=== PATIENT | male | born 1945 | race African-American/Black ===

== ENCOUNTER 2019-07-20 10:08 | Emergency (ER) | payer OTHER ==
[2019-07-20] MEDS ORDERED: LIDOCAINE 1% W/EPI 1:100,000 MDV 20 ML VIAL ONE (10:34)
--- OUTSIDE RECORDS SUMMARY | 2019-07-20 11:41 | XMS REPORT ---
:1945 Author Organization eClinicalWorks Care Team Providers Name Role Phone Hanson, Na Provider Role Unavailable Allergies, Adverse Reactions, Alerts Substance Reaction Event Type N.K.D.A. 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 Ac tive Assessment Anemia D64.9 Active Assessment Hyperlipidemia E78.5 Active Assessment Type 2 diabetes mellitus with E11.22 Active diabetic chronic kidney disease Assessment Hypertension I10 Active Assessment Controlled type 2 diabetes mellitus E11.9 Active without complication, without long-term current use of insulin Problem Decreased testosterone level E29.1 Active Problem Posttraumatic stress disorder F43.10 Active Problem BPH without urinary obstruction N40.0 Active Problem Allergic rhinitis, seasonal J30.2 Active Problem Erectile dysfunction N52.9 Active Problem Controlled type 2 diabetes mellitus E11.9 Active without complication, without long-term current use of insulin Problem Chronic renal disease N18.9 Active Problem Diabetic retinopathy E11.319 Active Problem Obstructive sleep apnea G47.33 Acti ve Problem Type 2 diabetes mellitus with E11.22 Active diabetic chronic kidney disease Problem Diabetic polyneuropathy associated E11.42 Active with type 2 diabetes mellitus Problem Edema R60.9 Active Problem Gout M10.9 Active Problem Chronic kidney disease, stage III N18.3 Active (moderate) Problem Nonalcoholic fatty liver disease K76.0 Active Problem Thrombocytopenia D69.6 Active Problem CKD (chronic kidney disease) stage N18.3 Active 3, GFR 30-59 ml/min Problem 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 Ac tive Problem Temporary low platelet count D69.6 Active Assessment CKD (chronic kidney disease) stage N18.3 Active 3, GFR 30-59 ml/min Problem Vitamin B12 deficiency E53.8 Activ e Assessment Drug-induced constipation K59.03 Ac tive Problem Obesity E66.9 Active Assessment Diabetic polyneuropathy associated E11.42 Active with type 2 diabetes mellitus Problem Anemia D64.9 Active Assessment Proteinuria, unspecified type R80.9 Active Problem GERD (gastroesophageal reflux K21.9 Active disease) Problem Hyperlipidemia E78.5 Active Problem Sickle cell trait D57.3 Active Problem Diabetes E11.9 Active Problem Hypertension I10 Active Medications Medication Code Code Instructions Start End Status Dosage System Date Date Finasteride [facility] 12033300150 5 MG Orally Active 1 ta blet twice a day Flonase [facility] 83667946341 50 MCG/ACT Active 2 spray i n Nasally Once a each day nostril HydrALAZINE HCl [facility] 93731286564 50 MG Orally Active 1 tablet Three times a with food day Cymbalta [facility] 40173965035 60 MG Orally Active 1 caps ule Once a day Aspir-Low ND 04770836242 81 MG Orally Active 1 tab let Once a day NovoLog ND 73615423972 100 UNIT/ML Active not defi isaura Subcutaneous Judi Allergy [facility] 97864520613 180 MG Orally Active 1 tablet as Once a day needed Methocarbamol [facility] 17412601421 750 MG Orally Active 1 tablet every 12 hrs Cozaar [facility] 83081204815 100 MG Orally Active 1 tabl et Once a day Allopurinol ND 13704055346 300 MG Orally Active as directed Lyrica ND 86194432515 50 MG Orally Active 1 capsu le Once a day TID Coreg ND 61821127806 25 MG Orally Active as dire cted Levemir FlexTouch [facility] 21213796384 Sub Q Once Active as directed Daily Insulin Aspart [facility] [address]-69 100 UNIT/ML Active as directed Subcutaneous Lipitor [facility] 95346100625 40 MG Orally Active 1 table t Once a day Lasix [facility] 45732300822 20 MG Orally Active 1 table t Once a day Neurontin [facility] 69143766496 300 MG Orally Active 1 ca psule Three times a before day bedtime Wellbutrin XL ND 99526378217 150 MG Orally Active 1 tablet in twice a day the morning Levemir FlexTouch [facility] 31169747248 100 UNIT/ML Active as directed Subcutaneous Trulicity [facility] 72157982779 0.75mg/0.5ml Active one SQ once a week injection Cyanocobalamin [facility] [address]-38 1000 MCG Active 1 tablet Orally Once a day Metoprolol [facility] 05320603295 50 MG Orally Active 1 ta blet Tartrate Twice a day with food Terazosin HCl [facility] 00939891577 10 MG Orally Active 1 capsule Once a day Clonazepam [facility] 69669297537 0.5 MG Orally Active 1 t ablet at Once a day bedtime Nitrostat [facility] 05797940356 0.4 MG Active not define d Sublingual Spironolactone [facility] 01858000829 25 MG Orally Active 1 tablet twice a day with food Viagra [facility] 34981959643 100 MG Orally Active 1 tabl et as Once a day needed Prazosin HCl [facility] 74837997252 5 MG Orally Active 1 c apsule Once a day at bedtime Viteyes AREDS [facility] 70886764399 - Orally Active as di rected Advanced Prilosec [facility] 52528026419 20 MG Orally Active 1 caps ule Once a day Isosorbide [facility] 68538577599 60 MG Orally Active 1 ta blet in Mononitrate Once a day the morni ng Fexofenadine HCl [facility] 13798669876 180 MG Orally Activ e 1 tablet as Once a day needed Results No Known Results Summary Purpose eClinicalWorks Submission
--- OUTSIDE RECORDS SUMMARY | 2019-07-20 11:41 | XMS REPORT ---
:1945 Author Organization eClinicalWorks Care Team Providers Name Role Phone Hanson, Na Provider Role Unavailable Allergies No Known Allergies Problems Problem Type Condition Code Onset Dates Condition Statu s Problem Decreased testosterone level E29.1 Active Problem [...] Problem Temporary low platelet count D69.6 Active Problem Vitamin B12 deficiency E53.8 Activ e Problem Obesity E66.9 Active Problem Anemia D64.9 Active Problem GERD (gastroesophageal reflux K21.9 Active disease) Problem Hyperlipidemia E78.5 Active Problem Sickle cell trait D57.3 Active Problem Diabetes E11.9 Active Problem Hypertension I10 Active Medications No Known Medications Results No Known Results Summary Purpose eClinicalWorks Submission
--- OUTSIDE RECORDS SUMMARY | 2019-07-20 11:41 | XMS REPORT ---
:1945 Author Organization [facility] Address [facility] [place] [address] Care Team Providers Name Role Phone Unavailable Unavailable Unavailable Problems Condition Condition Condition Status Onset Resolution Last Treating Co mments Source Name Details Category Date Date Treatment Clinician Date CKD CKD Problem Active [facility] (chronic [facility] kidney kidney [facility] disease) disease) l stage 3, stage 3, Outpat i GFR 30-59 GFR 30-59 ent ml/min ml/min Clinics Anemia Anemia Problem [facility] Erectile Erectile Problem Active [facility] dysfunctio dysfunctio [facility] - n n [facility] Obstructiv Obstructiv Problem Active [facility] sleep e sleep [facility] apnea apnea [facility] Hyperlipid Hyperlipid Problem Active [facility] emia emia [facility] Diabetic Diabetic Problem Active [facility] retinopath retinopath [facility] - y y [facility] Hypertensi Hypertensi Problem Active [facility] on on [facility] Edema Edema Problem Active [facility] Gout Gout Problem Active [facility] Diabetes Diabetes Problem [facility] BPH BPH Problem Active [facility] without without [facility] urinary urinary [facility] obstructio obstructio l n n [facility] Gastroesop Gastroesop Problem Active [facility] hageal hageal [facility] - reflux reflux Memoria disease, disease, l esophagiti esophagiti Ou tpati s presence s presence en t not not Clinics specified specified Obesity Obesity Problem Active [facility] Vitamin Vitamin Problem Active [facility] B12 B12 [facility] - deficiency deficiency Me moria l [facility] Posttrauma Posttrauma Problem Active [facility] tic stress tic stress [facility] - disorder disorder [facility] Decreased Decreased Problem Active [facility] testostero testostero [facility] - ne level ne level [facility] a l [facility] Nonalcohol Nonalcohol Problem Active [facility] ic fatty ic fatty [facility] liver liver [facility] disease disease l [facility] Chronic Chronic Problem Active [facility] renal renal [facility] disease disease [facility] Sickle Sickle Problem Active [facility] cell trait cell trait [facility] - [facility] Allergic Allergic Problem Active [facility] rhinitis, rhinitis, [facility] - seasonal seasonal Memori a l [facility] Thrombocyt Thrombocyt Problem Active [facility] openia openia [facility] Type 2 Type [address] [facility] diabetes diabetes [facility] - mellitus mellitus Memori a with with l diabetic diabetic Outpat i chronic chronic ent kidney kidney Clinics disease disease Moderate Moderate Diagnosis Active [facility] major major [facility] depression depression Me moria l [facility] Diabetic Diabetic Problem Active [facility] polyneurop polyneurop [facility] associated l with type with type Outp ati 2 diabetes 2 diabetes en t mellitus mellitus Clinic s Proteinuri Proteinuri Diagnosis Active [facility] a, a, [facility] - unspecifie unspecifie Me moria d type d type l [facility] Allergies, Adverse Reactions, Alerts This patient has no known allergies or adverse reactions. Medications Ordered Filled Start Stop Current Ordering Indication Dosage Frequency Signature Comments Components Source Medication Medication Date Date Medication? Clinician (SIG) Name Name Haven Orourke Yes Na Hanson [address] [facility] as needed [facility] Fexofenadin Fexofenadin Yes Na Hanson [address] [facility] e HCl e HCl as needed [facility] Allopurinol Allopurinol Yes Na Hanson as [facility] directed [facility] NovoLog NovoLog Yes Na Hanson [address] Flexpen Flexpen [facility] Finasteride Finasteride Yes Na Hanson [address] [facility] Neurontin Neurontin Yes Na Hanson [address] [facility] before [facility] - bedtime [facility] Out[facility] Clinics Metoprolol Metoprolol Yes Na Hanson [address] [facility] [facility] Tartrate Tartrate with food [facility] - [facility] Outpat[facility] ent Clinics HydrALAZINE HydrALAZINE Yes Na Hanson [address] [facility] HCl HCl [facility] Nitrostat Nitrostat Yes Na Hanson not [facility] defined kes - [facility] Methocarbam Methocarbam Yes Na Hanson [address] [facility] ol ol kes - [facility] Viteyes Viteyes Yes Na Hanson as [facility] AREDS AREDS directed [facility] Advanced Advanced [facility] Lipitor Lipitor Yes Na Hanson [address] [facility] Prazosin Prazosin Yes Na Hanson [address] [facility] HCl HCl at bedtime [facility] Out[facility] Clinics Cozaar Cozaar Yes Na Hanson [address] [facility] Clonazepam Clonazepam Yes Na Hanson [address] [facility] Prilosec Prilosec Yes Na Hanson [address] [facility] kes - [facility] Isosorbide Isosorbide Yes Na Hanson [address] [facility] Mononitrate Mononitrate in the [facility] - morning [facility]ics Chlorthalid Chlorthalid Yes Na Hanson [address] [facility] one one in the [facility] with food l Outpati ent Clinics Levemir Levemir Yes Na Hanson as [facility] FlexTouch FlexTouch directed L [facility] - [facility]oria l Outpati ent Clinics Flonase Flonase Yes Na Hanson [address] [facility] each [facility] - nostril [facility] Out[facility] ent Clinics Cymbalta Cymbalta Yes Na Hanson [address] [facility] Cyanocobala Cyanocobala Yes Na Hanson [address] [facility] min min [facility]ics Coreg Coreg Yes Na Hanson as [facility] directed [facility] Wellbutrin Wellbutrin Yes Na Hanson [address] [facility] XL XL in the [facility] - morning Memoria l Outpati ent Clinics Aspir-Low Aspir-Low Yes Na Hanson [address] [facility] Clin[facility] Insulin Insulin Yes Na Hanson as [facility] Aspart Aspart directed [facility] Judiyara Lau Yes Na Hanson [address] Allergy Allergy as needed [place] [facility] Lyricsabrina Lyricsabrina Yes Na Hanson [address] [facility] TID [facility] NovoLog NovoLog Yes Na Hanson not [facility] defined [facility] Terazosin Terazosin Yes Na Hanson [address] [facility] [facility] HCl HCl [facility] Procedures This patient has no known procedures. Encounters Start End Encounter Admission Attending Care Care Encounter Source Date/Time Date/Time Type Type Clinicians Facility Department ID 2019-06-12 2019-06-12 [facility] [id number] [facility] 15:46:00 15:46:00 [place] [facility] Medicine Outpati ent Clinics 2019-06-01 2019-06-01 [facility] [id number] [facility] 08:40:00 08:40:00 [place] [employer] [facility] Medicine Outpati ent Clinics 2019-05-13 2019-05-13 [facility] [id number] 16:56:00 16:56:00 [place] [employer] [facility] Medicine Outpati ent Clinics 2019-02-19 2019-02-19 [facility] [id number] 09:00:00 09:00:00 [place] [employer] [facility] Medicine Outpati ent Clinics 2019-01-20 2019-01-20 [facility] [id number] 08:00:00 08:00:00 [place] [employer] [facility] Medicine Outpati ent Clinics 2018-10-30 2018-10-30 [facility] [id number] 12:20:00 12:20:00 [place] [employer] [facility] Medicine Outpati ent Clinics 2018-10-15 2018-10-15 [facility] [id number] [facility] 08:40:00 08:40:00 t [place] [employer] [facility] Medicine Outpati ent Clinics 2018-09-11 2018-09-11 [facility] [id number] 08:20:00 08:20:00 t [place] [employer] [facility] Medicine Outpati ent Clinics 2018-06-11 2018-06-11 [facility] [id number] 08:00:00 08:00:00 t [place] [employer] [facility] Medicine Outpati ent Clinics 2018-03-12 2018-03-12 [facility] [id number] 08:00:00 08:00:00 t [place] [employer] [facility] Medicine Outpati ent Clinics 2017-11-27 2017-11-27 [facility] [id number] [facility] 08:15:00 08:15:00 t [employer] [facility] Medicine Outpati ent Clinics 2017-08-27 2017-08-27 [facility] [id number] [facility] 08:30:00 08:30:00 t [employer] [facility] Medicine Outpati ent Clinics Results This patient has no known results.
--- OUTSIDE RECORDS SUMMARY | 2019-07-20 11:42 | XMS REPORT ---
:1945 Author Organization eClinicalWorks Care Team Providers Name Role Phone Hanson, Na Provider Role Unavailable Allergies No Known Allergies Problems Problem Type Condition Code Onset Dates Condition Statu s Assessment Hypertension I10 Active Assessment Hyperlipidemia E78.5 Active Assessment Erectile dysfunction, unspecified N52.9 Active erectile dysfunction type Assessment Controlled type 2 diabetes mellitus E11.9 Active without complication, without long-term current use of insulin Problem Gout M10.9 Active Problem Edema R60.9 Active Problem Anemia D64.9 Active Problem GERD (gastroesophageal reflux K21.9 Active disease) Problem Vitamin B12 deficiency E53.8 Activ e Problem BPH without urinary obstruction N40.0 Active Problem Controlled type 2 diabetes mellitus E11.9 Active without complication, without long-term current use of insulin Problem Obesity E66.9 Active Problem Nonalcoholic fatty liver disease K76.0 Active Problem Temporary low platelet count D69.6 Active Problem Decreased testosterone level E29.1 Active Problem Gastroesophageal reflux disease, K21.9 Active esophagitis presence not specified Problem Diabetic polyneuropathy associated E11.42 Active with type 2 diabetes mellitus Problem Hyperlipidemia E78.5 Active Problem Hypertension I10 Active Problem Erectile dysfunction, unspecified N52.9 Active erectile dysfunction type Problem Diabetes E11.9 Active Problem Chronic kidney disease, stage III N18.3 Active (moderate) Problem Thrombocytopenia D69.6 Active Problem Type 2 diabetes mellitus with E11.22 Active diabetic chronic kidney disease Problem 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 Ac tive Assessment 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 Ac tive Problem Erectile dysfunction N52.9 Active Assessment Type 2 diabetes mellitus with E11.22 Active diabetic chronic kidney disease Problem Chronic renal disease N18.9 Active Assessment Proteinuria, unspecified type R80.9 Active Problem Sickle cell trait D57.3 Active Assessment CKD (chronic kidney disease) stage N18.3 Active 3, GFR 30-59 ml/min Problem Allergic rhinitis, seasonal J30.2 Active Problem CKD (chronic kidney disease) stage N18.3 Active 3, GFR 30-59 ml/min Problem Posttraumatic stress disorder F43.10 Active Problem Obstructive sleep apnea G47.33 Acti ve Problem Diabetic retinopathy E11.319 Active Medications Medication Code Code Instructions Start End Status Dosage System Date Date Fexofenadine HCl [facility] 90749443378 180 MG Orally Activ e 1 tablet Once a day as needed Allopurinol ND 02255081635 300 MG Orally Active as directed NovoLog Flexpen ND 68604072876 100 UNIT/ML Active 10 units Subcutaneous before breakfast and dinner Finasteride ND 23974479047 5 MG Orally Active 1 ta blet twice a day Neurontin ND 76266207550 300 MG Orally Active 1 ca psule Three times a before day bedtime Metoprolol [facility] 87848002065 50 MG Orally Active 1 ta blet Tartrate Twice a day with food HydrALAZINE HCl ND 36906779882 50 MG Orally Active 1 tablet two times a day Nitrostat [facility] 94356394612 0.4 MG Active not Sublingual defined Methocarbamol ND 35088799100 750 MG Orally Active 1 tablet every 12 hrs Viteyes AREDS [facility] 84425124947 - Orally Active as Advanced directed Lipitor ND 98390012760 40 MG Orally Active 1 table t Once a day Viagra [facility] 76781259855 100 MG Orally Active 1 tabl et Once a day as needed Prazosin HCl ND 70530808814 5 MG Orally Active 1 c apsule Once a day at bedtime Cozaar [facility] 64114429955 100 MG Orally Active 1 tabl et Once a day Clonazepam [facility] 55698790797 0.5 MG Orally Active 1 t ablet Once a day at bedtime Prilosec [facility] 30299216725 20 MG Orally Active 1 caps ule Once a day Isosorbide ND 81618292800 60 MG Orally Active 1 ta blet Mononitrate Once a day in the morning Chlorthalidone ND 88311316058 25 MG Orally Active 1 tablet Once a day in the morning with food Levemir FlexTouch [facility] 79087438404 100 UNIT/ML Active as Subcutaneous directed Flonase [facility] 14177025051 50 MCG/ACT Active 2 spray i n Nasally Once a each day nostril Cymbalta [facility] 43373933802 60 MG Orally Active 1 caps ule Once a day Cyanocobalamin [facility] [address]-13 1000 MCG Orally Act srinivas 1 tablet Once a day Coreg [facility] 43266843487 25 MG Orally Active as directed Wellbutrin XL [facility] 46964599928 150 MG Orally Active 1 tablet twice a day in the morning Aspir-Low [facility] 59712252660 81 MG Orally Active 1 tab let Once a day Insulin Aspart [facility] [address]-90 100 UNIT/ML Active as Subcutaneous directed Judi Allergy [facility] 09489625023 180 MG Orally Active 1 tablet Once a day as needed Lyrica [facility] 89619947663 50 MG Orally Active 1 capsu le Once a day TID NovoLog [facility] 27913453799 100 UNIT/ML Active not Subcutaneous defined Terazosin HCl [facility] 67834373985 10 MG Orally Active 1 capsule Once a day Results No Known Results Summary Purpose eClinicalWorks Submission
--- OUTSIDE RECORDS SUMMARY | 2019-07-20 11:42 | XMS REPORT ---
:1945 Author Organization eClinicalWorks Care Team Providers Name Role Phone Hanson, Na Provider Role Unavailable Allergies No Known Allergies Problems Problem Type Condition Code Onset Dates Condition Statu s Assessment Erectile dysfunction, unspecified N52.9 Active erectile dysfunction type Problem Gout M10.9 Active Problem Edema R60.9 [...] Ac tive Problem Erectile dysfunction N52.9 Active Problem Chronic renal disease N18.9 Active Problem Sickle cell trait D57.3 Active Problem Allergic rhinitis, seasonal J30.2 Active Problem CKD (chronic kidney disease) stage N18.3 Active 3, GFR 30-59 ml/min Problem Posttraumatic stress disorder F43.10 Active Problem Obstructive sleep apnea G47.33 Acti ve Problem Diabetic retinopathy E11.319 Active Medications Medication Code System Code Instructions Start End Date Status Dos age Date Viagra [facility] 08959286616 100 MG Orally Active 1 tabl et Once a day as needed Results No Known Results Summary Purpose eClinicalWorks Submission
--- OUTSIDE RECORDS SUMMARY | 2019-07-20 11:42 | XMS REPORT ---
:1945 Author Organization eClinicalWorks Care Team Providers Name Role Phone Hanson, Na Provider Role Unavailable Allergies No Known Allergies Problems Problem Type Condition Code Onset Dates Condition Statu s Problem Gout M10.9 Active Problem Edema R60.9 Active Problem Anemia D64.9 Active Problem GERD (gastroesophageal reflux K21.9 Active disease) Problem Posttraumatic stress disorder F43.10 Active Problem BPH without urinary obstruction N40.0 Active Problem Vitamin B12 deficiency E53.8 Activ e Problem Controlled type 2 diabetes mellitus E11.9 Active without complication, without long-term current use of insulin Problem Decreased testosterone level E29.1 Active Problem Nonalcoholic fatty liver disease K76.0 Active Problem Type 2 diabetes mellitus with E11.22 Active diabetic chronic kidney disease Problem 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 Ac tive Problem Hypertension I10 Active Problem Diabetes E11.9 Active Problem Gastroesophageal reflux disease, K21.9 Active esophagitis presence not specified Problem Obesity E66.9 Active Problem Thrombocytopenia D69.6 Active Problem Temporary low platelet count D69.6 Active Problem Diabetic polyneuropathy associated E11.42 Active with type 2 diabetes mellitus Problem Chronic kidney disease, stage III N18.3 Active (moderate) Problem Allergic rhinitis, seasonal J30.2 Active Problem Erectile dysfunction N52.9 Active Problem Hyperlipidemia E78.5 Active Problem Sickle cell trait D57.3 Active Problem Diabetic retinopathy E11.319 Active Problem CKD (chronic kidney disease) stage N18.3 Active 3, GFR 30-59 ml/min Problem Chronic renal disease N18.9 Active Problem Obstructive sleep apnea G47.33 Acti ve Medications Medication Code System Code Instructions Start End Date Status Dos age Date Viagra [facility] 83164968775 100 MG Orally Active 1 tabl et Once a day as needed Results No Known Results Summary Purpose eClinicalWorks Submission
--- OUTSIDE RECORDS SUMMARY | 2019-07-20 11:42 | XMS REPORT ---
:1945 Author Organization eClinicalWorks Care Team Providers Name Role Phone Hanson, Na Provider Role Unavailable Allergies, Adverse Reactions, Alerts Substance Reaction Event Type N.K.D.A. 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 Ac tive Assessment Hypertension I10 Active Assessment Hyperlipidemia E78.5 Active Assessment Controlled type 2 diabetes mellitus [...] kidney disease, stage III N18.3 Active (moderate) Assessment Anemia D64.9 Active Problem Allergic rhinitis, seasonal J30.2 Active Assessment CKD (chronic kidney disease) stage N18.3 Active 3, GFR 30-59 ml/min Problem Erectile dysfunction N52.9 Active Assessment Gastroesophageal reflux disease, K21.9 Active esophagitis presence not specified Problem Hyperlipidemia E78.5 Active Assessment Proteinuria, unspecified type R80.9 Active Problem Sickle cell trait D57.3 Active Assessment Gout M10.9 Active Problem Diabetic retinopathy E11.319 Active Assessment Diabetic polyneuropathy associated E11.42 Active with type 2 diabetes mellitus Problem CKD (chronic kidney disease) stage N18.3 Active 3, GFR 30-59 ml/min Problem Chronic renal disease N18.9 Active Problem Obstructive sleep apnea G47.33 Acti ve Medications Medication Code Code Instructions Start End Status Dosage System Date Date Lasix [facility] 42664062822 20 MG Orally Inactive 1 tabl et Once a day Aspir-Low ND 29470621099 81 MG Orally Active 1 tab let Once a day Prilosec [facility] 62993864379 20 MG Orally Active 1 caps ule Once a day HydrALAZINE HCl ND 21329161414 50 MG Orally Active 1 tablet two times a day Neurontin ND 94467730393 300 MG Orally Active 1 ca psule Three times a before day bedtime Judi Allergy ND 43716618642 180 MG Orally Active 1 tablet as Once a day needed NovoLog [facility] 00479973871 100 UNIT/ML Active not defi isaura Subcutaneous Coreg ND 67707774108 25 MG Orally Active as dire cted Cozaar [facility] 81968117707 100 MG Orally Active 1 tabl et Once a day Levemir FlexTouch [facility] 31953179720 Sub Q Once Dec Active 50 units Daily pm 2018 NovoLog Flexpen ND 10607569365 100 UNIT/ML Feb 19, Active 10 units Subcutaneous 2018 before breakfast and dinner Victoza [facility] 47505144250 18 MG/3ML Feb 19Apr Active 1.8 sc onc e 2018 17, daily x 1 2019 week then 1.2mg sc once daily x 1 week, then up to 1.8mg sc once daily Terazosin HCl [facility] 64765132972 10 MG Orally Active 1 capsule Once a day Levemir FlexTouch [facility] 40608833227 100 UNIT/ML Active as directed Subcutaneous Flonase ND 15680849744 50 MCG/ACT Active 2 spray i n Nasally Once a each day nostril Chlorthalidone ND 87896968137 25 MG Orally Feb 19, Active 1 tablet in Once a day 2018 the morning with food Fexofenadine HCl ND 02263968487 180 MG Orally Activ e 1 tablet as Once a day needed Wellbutrin XL ND 28840722108 150 MG Orally Active 1 tablet in twice a day the morning Metoprolol [facility] 74117367289 50 MG Orally Active 1 ta blet Tartrate Twice a day with food Finasteride ND 28089542441 5 MG Orally Active 1 ta blet twice a day Prazosin HCl ND 04239675370 5 MG Orally Active 1 c apsule Once a day at bedtime Isosorbide ND 72974642264 60 MG Orally Active 1 ta blet in Mononitrate Once a day the morni ng Allopurinol ND 10271669822 300 MG Orally Active as directed Cymbalta [facility] 99016902596 60 MG Orally Active 1 caps ule Once a day Methocarbamol ND 87033499731 750 MG Orally Active 1 tablet every 12 hrs Lipitor ND 65770538037 40 MG Orally Active 1 table t Once a day Clonazepam [facility] 63681425845 0.5 MG Orally Active 1 t ablet at Once a day bedtime Spironolactone [facility] 41785072040 25 MG Orally Dec Inactive 1 tablet twice a day , with food 2018 Insulin Aspart [facility] [address]-10 100 UNIT/ML Active as directed Subcutaneous Cyanocobalamin [facility] [address]-50 1000 MCG Active 1 tablet Orally Once a day Nitrostat ND 13759851795 0.4 MG Active not define d Sublingual Viagra [facility] 35891755362 100 MG Orally Active 1 tabl et as Once a day needed Viteyes AREDS [facility] 17728174941 - Orally Active as di rected Advanced Lyrica [facility] 29877016881 50 MG Orally Active 1 capsu le Once a day TID Trulicity [facility] 25778664075 0.75mg/0.5ml Dec Inactive one SQ once a week , injection 2019 Results No Known Results Summary Purpose eClinicalWorks Submission
--- NOTE | 2019-07-20 11:45 | ER ---
Nurse's Notes [facility] Name: William Benitez Age: 73 yrs Sex: Male : 1945 Arrival Date: 07/20/2019 Time: 10:13 Bed 5 Private MD: Lizeth Hanson Diagnosis: Laceration of left quadriceps muscle, fascia and tendon Presentation: 07/19 10:22 Chief complaint: Patient states: laceration to L knee sustained by chainsaw 1 hour ago. ss No active bleeding noted at this time. Coronavirus screen: Proceed with normal triage. Patient denies a cough. Patient denies shortness of breath or difficulty breathing. Patient denies measured and/or subjective temperature greater than 100.4F prior to today's visit. Patient denies travel on a cruise ship or to a country the [facility] currently lists as an affected area. Patient denies contact with known and/or suspected case of COVID-19. Ebola Screen: Patient denies exposure to infectious person. Patient denies travel to an Ebola-affected area in the 21 days before illness onset. Initial Sepsis Screen: Does the patient meet any 2 criteria? No. Patient's initial sepsis screen is negative. Does the patient have a suspected source of infection? No. Patient's initial sepsis screen is negative. Risk Assessment: Do you want to hurt yourself or someone else? Patient reports no desire to harm self or others. Onset of symptoms was July 20, 2019. 10:22 Method Of Arrival: Ambulatory ss 10:22 Acuity: SCARLETT 4 ss Historical: - Allergies: 10:26 No Known Allergies; ss - Immunization history:: Adult Immunizations up to date. - Social history:: Smoking status: Patient denies any tobacco usage or history of. Screenin:26 Abuse screen: Denies threats or abuse. Denies injuries from another. Nutritional ss screening: No deficits noted. Tuberculosis screening: Never had TB. Assessment: 10:30 General: Appears in no apparent distress. comfortable, Behavior is calm, cooperative, em appropriate for age, Denies fever. Pain: Complains of pain in left quadriceps Pain currently is 4 out of 10 on a pain scale. Pain began 1 hour ago. Neuro: Level of Consciousness is awake, alert, obeys commands, Oriented to person, place, time, situation, Appropriate for age. Cardiovascular: Capillary refill < 3 seconds Patient's skin is warm and dry. Respiratory: Airway is patent Respiratory effort is even, unlabored, Respiratory pattern is regular, symmetrical. Derm: Skin is intact, is healthy with good turgor, Skin is pink, warm \T\ dry. Musculoskeletal: Capillary refill < 3 seconds, Range of motion: intact in all extremities. Injury Description: Laceration sustained to left quadriceps is jagged, 2.6 to 7.5 cm long, was sustained 30-60 minutes ago. a small amount of bleeding noted at this time. Vital Signs: 10:22 BP 150 / 56; Pulse 60; Resp 17; Temp 97.7(TE); Pulse Ox 97% on R/A; Weight 142.43 kg; ss Height 6 ft. 3 in. (190.50 cm); Pain 4/10; 10:22 Body Mass Index 39.25 (142.43 kg, 190.50 cm) ss ED Course: 10:13 Patient arrived in ED. mr 10:15 Lizeth Hanson MD is Private Physician. mr 10:16 [facility] cp 10:16 Melvin Mcfarland MD is Attending Physician. cp 10:21 Ranjit Jefferson, ALEJANDRO is Primary Nurse. em 10:25 Triage completed. ss 10:26 Arm band placed on right wrist. ss 10:30 Patient has correct armband on for positive identification. Fall risk band placed. Call em light in reach. Side rails up X2. Pulse ox on. NIBP on. 10:58 XRAY Knee LEFT 3 view In Process Unspecified. EDMS 11:59 No provider procedures requiring assistance completed. Patient did not have IV access em during this emergency room visit. 12:01 Wound care: to laceration located on left quadriceps was cleaned with Betadine, dressed em with Neosporin, 4X4s, Kerlix, Patient tolerated well. Administered Medications: 11:26 Drug: Lidocaine-Epinephrine -1%: (1:100,000) 10 ml {Note: administered by DIOR Tobias.} em Volume: 20 ml; Route: Infiltration; Site: wound; 11:30 Follow up: Response: No adverse reaction; Marked relief of symptoms; Pain is decreased em Outcome: 11:45 Discharge ordered by . cp 11:59 Discharged to home ambulatory. em 11:59 Condition: good 11:59 Discharge instructions given to patient, Instructed on discharge instructions, follow up and referral plans. medication usage, wound care, Demonstrated understanding of instructions, follow-up care, medications, wound care, Prescriptions given X 1. 12:02 Patient left the ED. em Signatures: Dispatcher [employer] ALMA DELIA RobelWendy mr JeffersonRanjit RN RN em Smirch, Shelby, RN RN ss Page, Corey, PA PA cp
--- NOTE | 2019-07-20 11:45 | EDPHYS ---
Physician Documentation [facility] Name: William Benitez Age: 73 yrs Sex: Male : 1945 Arrival Date: 07/20/2019 Time: 10:13 Bed 5 Private MD: Lizeth Hanson ED Physician Melvin Mcfarland HPI: 07/19 11:00 This 73 yrs old Black Male presents to ER via Ambulatory with complaints of Knee cp laceration. Historical: - Allergies: 10:26 No Known Allergies; ss - Immunization history:: Adult Immunizations up to date. - Social history:: Smoking status: Patient denies any tobacco usage or history of. ROS: 11:10 Skin: Positive for laceration(s), of the left quadriceps. cp 11:10 Constitutional: Negative for fever. cp 11:10 Respiratory: Negative for cough. 11:10 Abdomen/GI: Negative for abdominal pain. 11:10 Neuro: Negative for numbness. 11:10 All other systems are negative. Exam: 11:15 Constitutional: The patient appears in no acute distress, alert, awake, well developed, cp well nourished. 11:15 Musculoskeletal/extremity: Extremities: grossly normal except: noted in the left cp quadriceps: laceration, There is no evidence of decreased ROM, ROM: full active range of motion, in the left knee, Perfusion: the extremity is normally perfused throughout, Sensation intact. Tendon exam: specific tendon testing normal through active and passive range of motion Vital Signs: 10:22 BP 150 / 56; Pulse 60; Resp 17; Temp 97.7(TE); Pulse Ox 97% on R/A; Weight 142.43 kg; ss Height 6 ft. 3 in. (190.50 cm); Pain 4/10; 10:22 Body Mass Index 39.25 (142.43 kg, 190.50 cm) ss Laceration: 11:41 Wound Repair of 9.5cm ( 3.7in ) subcutaneous laceration to left quadriceps. Linear cp shaped.. Distal neuro/vascular/tendon intact. Anesthesia: Wound infiltrated with 9 mls of 1% lidocaine w/ Epi. Wound prep: Moderate cleansing by me, Wound irrigation by me. Skin closed with 1 4-0 Prolene using running sutures and sterile technique. Dressed with Bacitracin, 4x4's. Patient tolerated well. MDM: 10:18 Patient medically screened. cp 11:13 Test interpretation: by ED physician or midlevel provider: xrays of left knee negative cp for fracture. 11:45 Data reviewed: vital signs, nurses notes, radiologic studies, plain films, and as a cp result, I will discharge patient. 11:45 Differential diagnosis: open fracture, simple laceration, tendon injury. Response to cp treatment: the patient's symptoms have markedly improved after treatment, and as a result, I will discharge patient. 07/19 10:21 Order name: XRAY Knee LEFT 3 view; Complete Time: 22:28 cp 07/19 22:29 Interpretation: Report reviewed. cp 07/19 10:21 Order name: Wound Care; Complete Time: 11:59 cp 07/19 10:21 Order name: Dressing - Wound; Complete Time: 10:22 cp 07/19 10:21 Order name: Gloves, Sterile; Complete Time: 11:59 cp 07/19 10:21 Order name: Setup Suture Tray; Complete Time: 11:59 cp Administered Medications: 11:26 Drug: Lidocaine-Epinephrine -1%: (1:100,000) 10 ml {Note: administered by PA. Jatinder} em Volume: 20 ml; Route: Infiltration; Site: wound; 11:30 Follow up: Response: No adverse reaction; Marked relief of symptoms; Pain is decreased em Disposition: 12:10 Chart complete. cp 15:40 Co-signature as Attending Physician, Melvin Mcfarland MD. rn Disposition: 07/20/19 11:45 Discharged to Home. Impression: Laceration of left quadriceps muscle, fascia and tendon. - Condition is Stable. - Discharge Instructions: Laceration Care, Adult. - Prescriptions for Keflex 500 mg Oral Capsule - take 1 capsule by ORAL route every 8 hours for 10 days; 30 capsule. - Medication Reconciliation Form, Thank You Letter, Antibiotic Education, Prescription Opioid Use form. - Follow up: Private Physician; When: 10 - 14 days; Reason: Staple/Suture removal. - Problem is new. - Symptoms have improved. Addendum: 07/21/2019 15:48 Addendum: HPI: 73 y/o male with laceration injury to left quadriceps area of leg caused c p by chain on morning of 07/21/2019. Patient denies any other injuries. Addendum: Spoke with patient to discuss radiology interpretation of xrays and recommendation to f/u with primary physician for CT or MRI of left lower extremity. Patient reports mild pain in area of injury. Signatures: Dispatcher [employer] Ranjit Rooney RN RN em Nieto, Roman, MD MD rn Smirch, Shelby, RN RN ss Page, Corey, PA PA cp Corrections: (The following items were deleted from the chart) 07/19 12:02 11:45 07/20/2019 11:45 Discharged to Home. Impression: Laceration of left quadriceps em muscle, fascia and tendon. Condition is Stable. Forms are Medication Reconciliation Form, Thank You Letter, Antibiotic Education, Prescription Opioid Use. Follow up: Private Physician; When: 10 - 14 days; Reason: Staple/Suture removal. Problem is new. Symptoms have improved. cp
--- NOTE | 2019-07-20 12:11 | RAD REPORT ---
EXAM DESCRIPTION: RAD - Knee Left 3 View - 07/20/2019 10:58 am CLINICAL HISTORY: laceration from chainsaw, knee pain, site of injury is anterior knee near the weeks lla. . COMPARISON: No comparisons FINDINGS: Available history indicates the laceration appears superficial. The anteromedial metaphyse al portion of the femur shows irregular lucency. There is questionable cortical disruption on the lat eral view. A minimal joint effusion is present.Minimal joint effusion is present. Prominent patella d egenerative spurring seen. No foreign body in the soft tissues. No soft tissue abnormality. IMPRESSION: Irregular bony cortex and lucency with calcific or bony density in the adjacent soft tis sues. Patient has underlying degenerative change and minimal effusion. Chain saw injury was apparently in proximity to this region but reported to be superficial. Correlati on is needed with physical exam findings. The potential of bony injury from the chainsaw is not exclu ded. If there are continued clinical concerns, thin section CT imaging of the knee could be performed to f urther evaluate the medial femoral condyle.
== END 2019-07-20 12:02 | disposition home or self-care (01) ==
LOC: ER 10:08
PROC: 0JQM0ZZ Repair Left Upper Leg Subcutaneous Tissue and Fascia, Open Approach (ICD-10-PCS; principal; 2019-07-20)
DX: S71.112A Laceration without foreign body, left thigh, initial encounter (principal); W31.2XXA Contact with powered woodworking and forming machines, initial encounter; Y93.9 Activity, unspecified; Y92.9 Unspecified place or not applicable
CPT/HCPCS: 99284

== ENCOUNTER 2021-01-31 07:06 | Day surgery (SDC) | payer OTHER ==
--- NOTE | 2021-01-24 11:57 | RAD REPORT ---
EXAM DESCRIPTION: Chase Kothari And Los (2 Views)01/24/2021 11:42 am CLINICAL HISTORY: Preop for bladder biopsy. Hypertension COMPARISON: 2017 FINDINGS: The lungs appear clear of acute infiltrate. The heart is moderately enlarged. Upper lobe vessels are prominent indicative of pulmonary venous hypertension
[2021-01-24 14:42] LABS: Basophils % 0.7 % (0-1.3); Hematocrit 31.3 % (39.6-49.0); MPV 11.6 fL (7.6-11.3); RBC Red Blood Cell Count 3.95 M/uL (4.33-5.43)
[2021-01-24 14:57] LABS: Potassium 4.6 mmol/L (3.5-5.1)
--- NOTE | 2021-01-25 08:05 | EKG ---
Test Date: 2021-01-24 Test Time: 11:14:12 Gis Database Administrator: CARLOS MEASUREMENT RESULTS: Intervals: Rate: 45 [place]: 232 QRSD: 98 QT: 478 QTc: 413 [place]: P: 81 [place]: 232 QRS: 77 T: 15 INTERPRETIVE STATEMENTS: Marked sinus bradycardia with 1st degree AV block Nonspecific T wave abnormality Abnormal ECG No previous ECG available for comparison Electronically Signed On 01-25-21 08:03:18 FREIGHT LOADER by Ben Reno
[2021-01-31] MEDS ORDERED: LIDOCAINE 1% MPF 5 ML VIAL ONE (07:35)
[2021-01-31] MEDS ORDERED: propofoL 200 MG/20 ML VIAL IV ONE (07:35)
[2021-01-31] MEDS ORDERED: MIDAZOLAM HCL 2 MG/2 ML INJ ONE (07:35)
[2021-01-31] MEDS ORDERED: FENTANYL CITR 100 MCG/2 ML ONE (07:35)
[2021-01-31] MEDS ORDERED: NA CHLORIDE 0.9% 1,000 ML ONE (07:45)
[2021-01-31] MEDS ORDERED: CEFAZOLIN/SWI 2gm 2 GM/20 ML SYR ONE (07:46)
[2021-01-31] MEDS ORDERED: GLYCOPYRROLATE 0.2 MG/ML SYR ONE ×2 (08:14→08:30)
[2021-01-31] MEDS ORDERED: ROCURONIUM 50 MG/5 ML VIAL IV ONE (08:23)
[2021-01-31] MEDS ORDERED: PHENAZOPYRIDINE 100MG TAB PO ONE (09:24)
--- NOTE | 2021-01-31 09:27 | OP ---
Date of Procedure: 01/31/2021 Surgeon: MICHAEL FINNEY Preoperative Diagnosis: Bladder tumor. Postoperative Diagnosis: Bladder tumor. Principal Procedures: 1.Cystoscopy. 2.Bladder biopsies with fulguration. Findings: 2-3 mm tumor lateral and distal to the right ureteral orifice. Indication For Procedure: Mr. Benitez presented to the Urology Clinic with some bothersome urinary s ymptoms and microscopic hematuria and was evaluated via outpatient cystoscopy. Incidental finding of presence of a small bladder tumor as described above. He was recommended for bladder biopsies with subsequent follow up imaging to be determined based on the pathology of the biopsy seen. Procedure In Detail: The patient was consented in the preoperative holding area before being transfe rred to operative suite where general anesthesia was induced. He was given Ancef 2 g IV antimicrobia l prophylaxis and Pneumoboots were provided for DVT prophylaxis. He was placed in the lithotomy posi tion, padded and secured to the table appropriately. His genitalia were prepped using Hibiclens and draped in standard fashion. The case was begun using a 22-Kazakh rigid cystoscope to traverse the ur ethra and into the bladder. Of note, within the mid proximal urethra, there was annular urethral str icture, which did not prohibit passage by the 22-Kazakh rigid cystoscope. The bladder was then surve yed in its entirety using a 30 degree lens and then a 70-degree lens to survey the bladder neck. The only tumor identified was the previously identified 2-3 mm tumor just lateral and distal to the righ t ureteral orifice. As a result, I utilized the 30 degree lens and a cold cup biopsy forceps to biop sy and remove the tumor in its entirety and then took an additional sample of the base of the tumor. This was sent for pathologic analysis. I then utilized a Bugbee electrode at a cautery setting of 3 0 and fulgurated the base until no bleeding was noted. His bladder was decompressed and was surveyed for bleeding, and when no bleeding was noted, I then discontinued the cystoscopic procedure, removed the scope and took the patient out of the lithotomy position. He was then awakened from general ane sthesia before being transferred to a stretcher and then to the recovery room in good condition. Complications: None. Discharge Disposition: He should follow up in Urology Clinic to discuss the results of the pathology within approximately 2 or 3 weeks time. If confirmed to be urothelial carcinoma, upper tract imagin g with a CT urogram would be recommended taking into account any relative decline in his renal functi on as had been identified preoperatively. LEONIE/NII Voice ID: [id number] Report ID: [id number]
[2021-01-31 09:49] VITALS: BP 161/64; TEMP 97.4; O2SAT 100
== END 2021-01-31 10:30 | disposition home or self-care (01) ==
LOC: OR 07:06
PROVIDERS: ATTEND Urology
PROC: 0TBB8ZX Excision of Bladder, Via Natural or Artificial Opening Endoscopic, Diagnostic (ICD-10-PCS; principal; 2021-01-31 08:30)
DX: C67.9 Malignant neoplasm of bladder, unspecified (principal); N40.1 Benign prostatic hyperplasia with lower urinary tract symptoms; N43.3 Hydrocele, unspecified; F52.32 Male orgasmic disorder; Z20.822 Contact with and (suspected) exposure to COVID-19
CPT/HCPCS: 93005; 87088; 85025; 87086; 80048; 36415; 82947 ×2; 88305; 87077; 87186; 71046; 52204; U0003; J2704; J2250; J3010; J0690; J7030

== ENCOUNTER → 2021-05-30 | Day surgery (SDC) | payer OTHER ==
[2021-05-25 16:11] LABS: Absolute Lymphocytes (CBC) 1.2 K/uL (0.7-4.9); Hematocrit 31.2 % (39.6-49.0); Lymphocytes % 18.3 % (15.3-44.8); MPV 9.9 fL (7.6-11.3); RBC Red Blood Cell Count 3.94 M/uL (4.33-5.43)
[2021-05-25 16:16] LABS: Protime INR 1.02
[2021-05-25 16:24] LABS: Potassium 4.2 mmol/L (3.5-5.1)
[~2021-05-30] MED LIST: BACITRACIN OINTMENT 14 GM TUBE TOP ONE; BUPIVACAINE 0.25% PF 10 ML VIAL ONE; CEFAZOLIN/SWI 2gm 2 GM/20 ML SYR ONE; FENTANYL CITR 100 MCG/2 ML ONE; HYDROCODONE/APAP 5/325 MG TAB PO PRN; KETOROLAC 30 MG/ML INJ ONE; LIDOCAINE 1% MPF 5 ML VIAL ONE; NA CHLORIDE 0.9% 1,000 ML ONE; ONDANSETRON 4 MG/2 ML VIAL ONE; dexAMETHasone 10 MG/ML VIAL ONE; propofoL 200 MG/20 ML VIAL IV ONE
[2021-05-30 13:57] VITALS: BP 149/62; TEMP 97.1; O2SAT 96
--- NOTE | 2021-05-31 00:37 | OP ---
Surgeon: MICHAEL FINNEY Preoperative Diagnoses: 1.Left hydrocele. 2.Status post clinic-based aspiration and sclerosis. Postoperative Diagnoses: 1.Left hydrocele. 2.Status post clinic-based aspiration and sclerosis. Principal Procedure: Left Jaboulay hydrocelectomy. Indication For Procedure: Mr. Benitez is well known to me with history of bilateral hydrocele, statu s post aspiration and sclerosis of the left side but recurrent, and presence of a bladder tumor revea led to be urothelial carcinoma, status post induction course of intravesical gemcitabine chemotherapy without signs of visible recurrence. He presents today for definitive management of the left hydroc lindsey and will consider future management of the right side. Procedure In Detail: The patient was consented in the preoperative holding area before being transfe rred to the operative suite, where general anesthesia was induced. He was given Ancef IV antimicrobi al prophylaxis and pneumo boots were provided for DVT prophylaxis. He was placed supine on the [facility] dure table, padded and secured appropriately. His genitalia was shaved with a razor and Betadine scr ub before being prepped with povidone-iodine and draped in standard fashion. A Mariia's line incisio n was made within the left hemiscrotum and was instilled with 0.25% Marcaine subcutaneously. An inci stephanie was made using a 15 blade and deepened through subcutaneous tissue using an electrocautery. Thi s was then taken down through the dartos layers before encountering some granulomatous tissue subcuta neously, likely a small hematoma for reaction to some of the doxycycline that was instilled for the a spiration and sclerosis procedure done previously. As a result, I then excised the subcutaneous gran ulomatous tissue and removed it, as it was a palpable disfiguration that the patient had noted. I wa s then able to identify the tunica vaginalis parietal layer of the hydrocele sac and from t he surrounding dartos layers. I was then able to deliver the hydrocele sac into the operative field outside of the incision and I continued to release any additional dartos attachments using electrocau moe to fulgurate any bleeders. I then incised the hydrocele sac in the dorsal midline, revealing th e testis and fluid beneath. The fluid was aspirated from within, and the sac was partially excised b efore being wrapped around the testicle posteriorly. I then sewed the edges of the sac together jossie stern 3-0 Vicryl in a running and every fourth or fifth suture locking fashion in order to achieve hemost asis. Careful irrigation was then performed of the testis, its tunics, and the subcutaneous and dart os layers before pinpoint fulgurating any additional bleeding vessels noted. The testis was then del ivered back into the scrotal sac, and the dartos layers were closed using 3-0 Vicryl suture in a runn ing fashion. The subcutaneous tissues and skin were then closed using 3-0 chromic suture in a baseba ll stitch fashion. Bacitracin was applied after washing his skin free of the Betadine, and a fluff g auze and scrotal support was also applied. The patient was then awakened from general anesthesia, tr ansferred to a stretcher, and then transferred to the recovery room in good condition. Complications: None. Discharge Disposition: He should follow up in the Urology Clinic in about 3-6 weeks interval assessm ent and subsequently will follow up in about 3 months for repeat cystoscopic evaluation given his his tory of bladder cancer. LEONIE/NII Voice ID: [id number] Report ID: [id number]
== END | disposition home or self-care (01) ==
LOC: OR 08:37
PROVIDERS: ATTEND Urology
PROC: 0VB70ZZ Excision of Left Tunica Vaginalis, Open Approach (ICD-10-PCS; principal; 2021-05-30 10:00)
DX: N43.3 Hydrocele, unspecified (principal); I10 Essential (primary) hypertension; K21.9 Gastro-esophageal reflux disease without esophagitis; M10.9 Gout, unspecified; Z20.822 Contact with and (suspected) exposure to COVID-19
CPT/HCPCS: 93005; 85025; 80048; 36415; 85610; 82947 ×2; 88302; 55040; U0003; J2704; J3010 ×2; J1100; J0690; J7030; J2405

== ENCOUNTER 2022-03-27 06:25 | Day surgery (SDC) | payer OTHER ==
--- NOTE | 2022-03-15 12:24 | RAD REPORT ---
EXAM DESCRIPTION: Chase Kothari And Lat (2 Views)03/15/2022 12:11 pm CLINICAL HISTORY: Pre op pending urolift/hypertension COMPARISON: 2020 FINDINGS: The lungs appear clear of acute infiltrate. The heart is mildly enlarged IMPRESSION: No acute abnormalities displayed
[2022-03-15 12:34] LABS: Absolute Lymphocytes (CBC) 1.3 K/uL (0.7-4.9); Lymphocytes % 20.7 % (15.3-44.8); MCV 80.4 fL (80-100); MPV 10.9 fL (7.6-11.3); RBC Red Blood Cell Count 3.48 M/uL (4.33-5.43)
[2022-03-15 12:44] LABS: Potassium 4.6 mmol/L (3.5-5.1)
--- NOTE | 2022-03-16 10:50 | EKG ---
Test Date: 2022-03-15 Test Time: 11:46:59 Track Vehicle Repairer: RIAZ MEASUREMENT RESULTS: Intervals: Rate: 59 ID: [id number] QRSD: 96 QT: 440 QTc: 435 [place]: P: 75 ID: [id number] QRS: 72 T: 47 INTERPRETIVE STATEMENTS: Sinus bradycardia with occasional premature ventricular complexes T wave abnormality, consider lateral ischemia Abnormal ECG Compared to ECG 05/25/2021 14:51:24 Ventricular premature complex(es) now present Possible ischemia now present Sinus rhythm no longer present T-wave abnormality still present Electronically Signed On 03-16-22 10:46:47 CAFETERIA MONITOR by Ben Reno
[2022-03-27] MEDS ORDERED: CEFAZOLIN SODIUM 2 GM/VIAL ONE (06:44)
[2022-03-27] MEDS ORDERED: NA CHLORIDE 0.9% 1,000 ML ONE (06:44)
[2022-03-27] MEDS ORDERED: propofoL 200 MG/20 ML VIAL IV ONE (07:25)
[2022-03-27] MEDS ORDERED: MIDAZOLAM HCL 2 MG/2 ML INJ ONE (07:27)
[2022-03-27] MEDS ORDERED: FENTANYL CITR 100 MCG/2 ML ONE (07:27)
[2022-03-27] MEDS ORDERED: LIDOCAINE 1% MPF 5 ML VIAL ONE (07:27)
[2022-03-27] MEDS ORDERED: ONDANSETRON 4 MG/2 ML VIAL ONE (07:52)
[2022-03-27] MEDS ORDERED: KETOROLAC 30 MG/ML INJ ONE (07:52)
[2022-03-27] MEDS ORDERED: CODEINE 30MG/APAP 300MG TAB PO PRN (09:02)
[2022-03-27 10:00] VITALS: TEMP 98; O2SAT 99
--- NOTE | 2022-03-27 10:26 | OP ---
Surgeon: MICHAEL FINNEY Preoperative Diagnoses: 1.Benign prostatic hypertrophy with lower urinary tract obstruction and symptoms. 2.History of urothelial carcinoma of the bladder. Postoperative Diagnoses: 1.Benign prostatic hypertrophy with lower urinary tract obstruction and symptoms. 2.History of urothelial carcinoma of the bladder. Principal Procedures: 1.Cystoscopy. 2.Prostatic urethral lift. Indication For Procedure: Mr. Benitez is a 76-year-old gentleman with multiple medical comorbidities , who had obstructive lower urinary symptoms due to BPH in addition to a history of urothelial carcin alejandra of the bladder. He had undergone resection of the bladder tumor revealing papillary urothelial c arcinoma, low-grade and noninvasive, and underwent induction gemcitabine intravesical therapy initiat ed February 14, 2021 and subsequently completed. He thus presents today for cystoscopic evaluation a nd prostatic urethral lift. Procedure In Detail: The patient was consented in the preoperative holding area before being transfe rred to operative suite where general anesthesia was induced. He was given Ancef 2 g IV antimicrobia l prophylaxis and pneumo boots were provided for DVT prophylaxis. He was placed in lithotomy positio n, padded and secured to the table appropriately. His genitalia were prepped with Hibiclens and was draped in standard fashion. The case was begun using a 20-Faroese UroLift obturator and scope to sisi erse the urethra and enter his bladder with ease. There was evident lateral lobar hypertrophy, more coming from the left lateral than on the right, but there was not a significant elevation of the medi an bar. Upon entry into the bladder, cystoscopic evaluation was performed given his history of bladd er cancer. The ureteral orifices were orthotopic in location and effluxing clear urine bilaterally. There were no papillary mucosal lesions, foreign bodies or stones noted throughout the remainder of his bladder. As a result, I switched the visual obturator for a UroLift implant and delivery device. I targeted the bladder neck region on the left to start and angled the device about 10 degrees late rally at the 1 to 2 o'clock position on the left. The first trigger was pulled deploying the needle through the prostate substance, and I angled the device laterally approximately 10 degrees more befor e pulling the trigger a second time which deployed the capsular tab and partially retracted the needl e. I pulled the trigger a third time which further tensioned the suture and completely retracted the needle. I then angled the device back toward the midline and advanced it about 2-3 mm toward the bl adder neck until the white line of the monofilament was centered in the delivery bay. I then pulled the trigger the 4th time, which applied the capsular tab and tailored the suture. I then advanced th e device back into the bladder and switched it for a new UroLift delivery device and implant. This w as targeted similarly on the right side of his prostate at the bladder neck about 1.5-2 cm distal to the bladder neck at the 10 to 11 o'clock position. On the right side, a similar set of trigger pulls and maneuvers were undertaken in order to successfully place an implant in that location. I then ad vanced the UroLift delivery device back into the bladder and utilized a visual obturator to survey th e channel that had been created. The bladder neck was beautifully opened, picture perfect like the b rochures. The implants were appropriately seated with a nice rim of prostatic tissue at the bladder neck preventing the implants from being too close to the entry into the bladder. There was residual apical lateral tissue, so I targeted the left apical region between 1-2 o'clock and employing an impl ant there. I employed a similar implant at the right apex, but this time the implant did apparently struck the bone and pulled through. As a result, that was removed and a fifth implant was required t o target the right apical region. This was deployed successfully, and then I surveyed the channel ag ain created. There was residual lateral tissue largely emanating from the left intermediate zone of the prostate. This was targeted with a 6th implant and successfully placed. This was then resulted in some anterior overhang mostly coming from the right side of his prostate, which required the targe ting of the right intermediolateral zone of the prostate with a 7th and final implant in a more anter ior/stack position at around 11 o'clock. This resulted in elevation of the tissue in that region and a beautiful continuous anterior channel with some minimal inferior intrusion into the urethral lumen from the midzone of the prostate from the left side. However, since a nice beautiful anterior chann el had been created and the remainder of the fossa was excellent, no further implants were deemed natalie ropriate or necessary, so I left the bladder full and placed an 18-Faroese catheter into his bladder w ith ease after removing the final implant and scope. The patient was then taken out of the lithotomy position, awakened from general anesthesia, transferred to a stretcher, and then transferred to the recovery room in good condition. Complications: None. Discharge Disposition: He should follow up in the Urology Clinic in 1 month for routine. He should be planned for subsequent followup cystoscopy given his history of bladder cancer, which may be done 6 months from today's procedure or in late August of this year. In the earlier, cystoscopic appointmen t may be rescheduled given his negative cystoscopy from today. LEONIE/NII Voice ID: [id number] Report ID: [id number]
[2022-03-27 11:04] VITALS: BP 138/50
== END 2022-03-27 11:15 | disposition home or self-care (01) ==
LOC: OR 06:25
PROVIDERS: ATTEND Urology
PROC: 0T7D8DZ Dilation of Urethra with Intraluminal Device, Via Natural or Artificial Opening Endoscopic (ICD-10-PCS; principal; 2022-03-27 07:30)
DX: N40.1 Benign prostatic hyperplasia with lower urinary tract symptoms (principal); Z85.51 Personal history of malignant neoplasm of bladder
CPT/HCPCS: 93005; 87088; 85025; 87086; 80048; 36415; 85610; 82947 ×2; 85730; 71046; 52441; 52442 ×6; J2704; J2001; J2250; J3010; J7030; J2405

== ENCOUNTER 2023-09-29 09:30 | Inpatient (IN) | payer OTHER ==
--- NOTE | 2023-09-29 10:13 | RAD REPORT ---
EXAM DESCRIPTION: CT - Ct Stroke Brain Wo Cont - 09/29/2023 10:00 am CLINICAL HISTORY: STROKE ALERT COMPARISON: Brain Wo Cont dated 04/11/2021 TECHNIQUE: Noncontrast head CT images were obtained without IV contrast. Multiplanar reformats were generated and reviewed. All CT scans are performed using dose optimization technique as appropriate and may include automated exposure control or mA/KV adjustment according to patient size. FINDINGS: No intracranial hemorrhage, mass, or edema. Midline structures are unremarkable. Right frontal approach ventriculostomy catheter with tip projecting along the ventricular body. Stabl e prominence of the ventricular caliber similar to the prior MRI. No hydrocephalus. . Jones-white matter differentiation is preserved, without evidence of acute infarct. No abnormal extra- axial fluid collections. Mastoid air cells and visualized portions of the paranasal sinuses are clear. No acute bony findings. IMPRESSION: No evidence of an acute intracranial process. Stable ventricular caliber with the right ventriculostomy catheter in place. The findings were communicated to Faisal Dhillon on 09/29/2023 at 10:09 hours.
[2023-09-29 10:50] LABS: Absolute Eosinophils 0.1 K/uL (0-0.5); Absolute Lymphocytes (CBC) 0.9 K/uL (0.7-4.9); Absolute Monocytes 0.6 K/uL (0.1-1.3); Basophils % 0.3 % (0-1.3); Eosinophils % 0.8 % (0-4.4); Hematocrit 34.1 % (39.6-49.0); Hemoglobin 11.1 g/dL (13.6-17.9); Lymphocytes % 10.4 % (15.3-44.8); MCH 25.2 pg (27.0-35.0); MCHC 32.4 g/dL (32.0-36.0); MCV 77.8 fL (80-100); MPV 11.8 fL (7.6-11.3); Monocytes % 7.4 % (3.3-12.3); Neutrophils % 81.1 % (41.7-73.7); Platelets 111 thou/uL (152-406); RBC Red Blood Cell Count 4.39 M/uL (4.33-5.43); Red Cell Distribution Width 15.7 % (12.1-15.2)
[2023-09-29 10:54] LABS: PT Prothrombin Time 12.2 SECONDS (9.4-12.5); PTT, Activated Partial Thromb 33.7 SECONDS (24.3-36.9); Protime INR 1.09
[2023-09-29 11:06] LABS: ALT/SGPT 16 U/L (16-61); AST/SGOT 15 U/L (15-37); Albumin 3.9 g/dL (3.4-5.0); Albumin/Globulin Ratio 0.9 (1.1-1.8); Alkaline Phosphatase 57 U/L (45-117); Anion Gap 12.2 mEq/L (5.0-15.0); BUN Blood Urea Nitrogen 87 mg/dL (7-18); Bicarbonate 25 mEq/L (21-32); Bilirubin Total 0.5 mg/dL (0.2-1.0); Globulin 4.3 g/dL (2.3-3.5); Glomerular Filtration Rate 14 ml/min (=/>90); Glucose Level 126 mg/dL (74-106); Potassium 3.2 mEq/L (3.5-5.1); Protein, Total 8.2 g/dL (6.4-8.2); Sodium Level 137 mEq/L (136-145)
[2023-09-29 11:07] LABS: Bilirubin Direct < 0.2 mg/dL (0-0.2); Bilirubin Indirect, Calculated 0.3 mg/dL (0.2-0.8)
[2023-09-29 11:08] LABS: Troponin High Sensitivity 59.2 pg/mL (<58.9)
--- NOTE | 2023-09-29 12:21 | RAD REPORT ---
EXAM DESCRIPTION: RADChest Single View09/29/2023 10:57 am CLINICAL HISTORY: stroke aler COMPARISON: Chest Pa And Lat (2 Views) dated 07/09/2023; Chest Pa And Lat (2 Views) dated 03/15/2022; C hest Pa And Lat (2 Views) dated 01/24/2021; Chest Pa And Lat (2 Views) dated 04/11/2016 TECHNIQUE: Portable AP view of the chest. FINDINGS: Mild central interstitial prominence. Moderate cardiomegaly. No pneumothorax or effusion. The mediastinal contours are unremarkable. Ventricular shunt catheter traverses along the right lemuel st wall. IMPRESSION: Findings suggesting congestive heart failure. .
--- NOTE | 2023-09-29 12:37 | RAD REPORT ---
EXAM DESCRIPTION: CT - Neck Angio - 09/29/2023 10:53 am CLINICAL HISTORY: stroke aler COMPARISON: Head angio dated 09/29/2023 TECHNIQUE: Axial CT angiography images of the head was performed with multiplanar and maximum intens ity projection reconstructions. Images performed following intravenous administration of iodinated co ntrast. All CT scans are performed using dose optimization technique as appropriate and may include automated exposure control or mA/KV adjustment according to patient size. FINDINGS: No evidence of large vessel occlusion. No evidence of aneurysm or dissection flap is detec chuck. No flow-limiting stenosis or vascular malformation identified. Antegrade flow is seen in the vertebral arteries. The vertebral arteries are codominant. The visualized dural venous sinuses are grossly patent. IMPRESSION: No evidence of large vessel occlusion or flow-limiting stenosis.
--- NOTE | 2023-09-29 12:40 | RAD REPORT ---
EXAM DESCRIPTION: CT - Head angio - 09/29/2023 10:53 am CLINICAL HISTORY: stroke alert COMPARISON: Ct Stroke Brain Wo Cont dated 09/29/2023 TECHNIQUE: Axial CT angiography images of the head was performed with multiplanar and maximum intens ity projection reconstructions. Images performed following intravenous administration of iodinated c ontrast. All CT scans are performed using dose optimization technique as appropriate and may include automated exposure control or mA/KV adjustment according to patient size. FINDINGS: Slightly suboptimal contrast timing limits evaluation. No evidence of large vessel occlusion. No evidence of aneurysm or dissection flap is detected. No jorje w-limiting stenosis or vascular malformation identified. Antegrade flow is seen in the vertebral arteries. The vertebral arteries are codominant. The visualized dural venous sinuses are grossly patent. IMPRESSION: No evidence of large vessel occlusion or flow-limiting stenosis.
--- NOTE | 2023-09-29 12:55 | EDPHYS ---
Physician Documentation [facility] Name: William Benitez Age: 77 yrs Sex: Male : 1945 Arrival Date: 09/29/2023 Time: 09:30 Bed 20 Private MD: ED Physician Faisal Dhillon HPI: 09/28 09:48 This 77 yrs old Black Male presents to ER via Ambulatory with complaints of Numbness Of ec2 Arm, General Weakness, Memory Loss. 09:48 Patient arrives today for evaluation of weakness for the left arm. Last known well is ec2 approximately 10 hours prior to arrival. Went to bed 11 P, woke up with left-sided weakness. Patient complaining of diminished sensation in the left upper extremity, weakness in the left upper extremity. Patient reports no falls injuries or trauma, no blood thinners, history of hypertension, hyperlipidemia, diabetes no history of previous stroke.. Historical: - Allergies: 09:49 No Known Allergies; hb - Home Meds: 10:29 Aspirin 81mg Oral daily [Active]; isosorbide mononitrate 120 mg Oral Tablet, Extended aa5 Release 24 hr daily [Active]; hydralazine 100 mg Oral tablet 4 times a day [Active]; nifedipine 90 mg Oral tablet, extended release 2 times per day [Active]; omeprazole 20 mg Oral tablet, delayed release (enteric coated) once [Active]; prazosin 2 mg oral capsule once [Active]; clonazepam 0.5 mg Oral tablet every day at bedtime [Active]; pregabalin 50 mg Oral capsule every day at bedtime [Active]; atorvastatin 80 mg oral tablet every day at bedtime [Active]; carbidopa-levodopa 25-250 mg Oral Tablet,disintegrating 3 times per day for parkinsonism [Active]; carvedilol 25 mg oral tablet 2 times per day [Active]; bumetanide 2 mg Oral tablet 2 times per day [Active]; metolazone 2.5 mg oral tablet every other day [Active]; fexofenadine 60 mg Oral tablet once [Active]; allopurinol 50mg Oral tablet every other day [Active]; cyanocobalamin (vitamin B-12) 1,000 mcg oral tablet once [Active]; AREDS Viteyes twice a day [Active]; clonidine 0.2mg patch every 7 days [Active]; Vitamin D Oral 5000 unit daily [Active]; 10:29 Insulin SQ [Active]; aa5 - PMHx: 09:50 Hydrocephalus; hb 10:00 Hypertensive disorder; Diabetes mellitus; Parkinson's disease; Kidney failure; aa5 10:29 Restless leg syndrome; Anemia; Gout; aa5 - 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 - Infectious Disease History:: Denies. - Social history:: Smoking status: Patient denies any tobacco usage or history of. ROS: 09:48 Constitutional: as per hpi ec2 Exam: 09:48 Constitutional: GEN: NAD Head: atraumatic Eyes: EOMI Ears: External ears are ec2 normal. CV: regular rate LUNGS: no respiratory distress ABD: non-distended SKIN: no evidence of rashes MSK: no evidence of trauma NEURO: moves all extremities equally, cranial nerves II through XII intact, diminished sensation to left upper extremity, significant weakness noted in the left upper extremity 3 out of 5, left lower extremity with mild 4 out of 5 weakness. Right upper and lower extremity without deficit. Vital Signs: 10:07 BP 171 / 56; Pulse 52; Resp 18 S; Temp 97.5(TE); Pulse Ox 100% on R/A; aa5 11:00 BP 156 / 70; Pulse 50; Resp 16 S; Pulse Ox 100% on R/A; aa5 12:00 BP 191 / 67; Pulse 48; Resp 16 S; Pulse Ox 100% on R/A; aa5 13:00 BP 193 / 80; Pulse 44; Resp 18 S; Temp 97.6(TE); Pulse Ox 99% on R/A; aa5 14:00 BP 187 / 57; Pulse 48; Resp 16 S; Pulse Ox 100% on R/A; aa5 15:00 BP 177 / 56; Pulse 47; Resp 18 S; Pulse Ox 100% on R/A; aa5 NIH Stroke Scale Scores: 09:43 NIHSS Score: 3 aa5 09:48 NIHSS Score: 4 ec2 11:00 NIHSS Score: 3 aa5 15:00 NIHSS Score: 3 aa5 MDM: 09:39 Patient medically screened. ec2 09:48 Data reviewed: vital signs. Data reviewed: nurses notes. ED course: Patient arrives ec2 today for left-sided weakness. Patient is outside of the stroke window at approximately 10 hours. Examination remarkable for NIH as documented above, profound left upper extremity weakness, some left lower extremity weakness. Will obtain a stroke workup. Differential includes stroke, hypoglycemia, electrolyte disturbances, large vessel occlusion.. 10:10 ED course: Discussed case with radiology, CT scan of the head negative.. ec2 10:14 ED course: EKG independently reviewed and interpreted by me, shows bradycardia, rate of ec2 49, no acute ST segment elevations, intervals are nonconcerning, does appear to have a sawtooth appearance, suspect underlying atrial flutter however there is some motion artifact noted. 10:34 ED course: Of note patient is not a TNK candidate given his onset time . ec2 10:46 ED course: Patient is ESRD, ultimately patient will benefit from contrasted study given ec2 concern for large vessel occlusion. 11:02 ED course: CBC shows slight anemia. Coagulation profile is nonactionable. . ec2 11:57 ED course: Metabolic profile shows expected renal dysfunction, hypokalemia 3.2, LFTs ec2 are nonactionable, troponin is mildly elevated at 59.2. . 12:31 ED course: Called radiology regarding pending CT angio and results.. ec2 12:53 ED course: CT angio head and neck show no acute flow-limiting pathology. On ec2 reassessment patient remains with significant left upper extremity deficits. Will admit patient for further stroke workup. Discussed case with hospitalist, pending admission. Family updated on Plan of care and agreeable.. 09/28 09:48 Order name: Basic Metabolic Panel; Complete Time: 11:56 ec2 09/28 09:48 Order name: CBC with Diff; Complete Time: 11:02 ec2 09/28 09:48 Order name: Hepatic Function; Complete Time: 11:56 ec2 09/28 09:48 Order name: High Sensitivity Troponin; Complete Time: 11:56 ec2 09/28 09:48 Order name: Protime (+inr); Complete Time: 11:02 ec2 09/28 09:48 Order name: Ptt, Activated; Complete Time: 11:02 ec2 09/28 09:57 Order name: Glucose, Ancillary Testing; Complete Time: 10:23 EDMS 09/28 09:59 Order name: Glucose, Ancillary Testing EDMS 09/28 14:57 Order name: RPR EDMS 09/28 14:57 Order name: Vitamin B12 Level EDMS 09/28 14:57 Order name: Vitamin D, 25 (OH), TOTAL EDMS 09/28 14:57 Order name: Basic Metabolic Panel EDMS 09/28 14:57 Order name: Basic Metabolic Panel EDMS 09/28 14:57 Order name: C-Reactive Protein EDMS 09/28 14:57 Order name: C-Reactive Protein EDMS 09/28 14:57 Order name: CBC with Automated Diff EDMS 09/28 14:57 Order name: CBC with Automated Diff EDMS 09/28 14:57 Order name: Lipid Profile EDMS 09/28 14:57 Order name: Lipid Profile EDMS 09/28 14:57 Order name: Magnesium EDMS 09/28 14:57 Order name: Magnesium EDMS 09/28 14:57 Order name: Phosphorus EDMS 09/28 14:57 Order name: Phosphorus EDMS 09/28 14:57 Order name: T4,Total EDMS 09/28 14:57 Order name: T4,Total EDMS 09/28 14:57 Order name: Thyroid Stimulating Hormone EDMS 09/28 14:57 Order name: Thyroid Stimulating Hormone EDMS 09/28 14:57 Order name: Troponin High Sensitivity EDMS 09/28 14:57 Order name: Troponin High Sensitivity EDMS 09/28 14:57 Order name: Troponin High Sensitivity EDMS 09/28 14:57 Order name: Anti-Thrombin III Activity EDMS 09/28 14:57 Order name: C-ANCA Anti-Proteinase 3 EDMS 09/28 14:57 Order name: Cardiolipin Antibodies G,M EDMS 09/28 14:57 Order name: Factor V Leiden Mutation EDMS 09/28 14:57 Order name: Homocysteine EDMS 09/28 14:57 Order name: Miscellaneous Test Lab EDMS 09/28 14:57 Order name: P-ANCA Anti-Myeloperoxidase Ab EDMS 09/28 14:57 Order name: Protein C Antigen EDMS 09/28 14:57 Order name: Protein Electo w/M Cale Serum EDMS 09/28 14:57 Order name: Protein S (Total EDMS 09/28 14:57 Order name: PROTHROMBIN GENE ANALYSIS (F2) EDMS 09/28 09:48 Order name: CT Neck Angio; Complete Time: 12:48 ec2 09/28 09:48 Order name: CT Stroke Brain w/o Contrast; Complete Time: 10:23 ec2 09/28 09:48 Order name: Stroke CXR 1 View; Complete Time: 12:31 ec2 09/28 10:48 Order name: Head angio; Complete Time: 12:48 EDVA 09/28 14:57 Order name: Echo with Doppler [facility] 09/28 14:57 Order name: Stroke Protocol [facility] 09/28 09:48 Order name: EKG; Complete Time: 09:48 ec2 09/28 14:57 Order name: CONS Physician Consult [facility] 09/28 14:57 Order name: IRF Screen [facility] 09/28 14:57 Order name: Physical Therapy Consult [facility] 09/28 14:57 Order name: Speech Therapy Consult [facility] 09/28 15:03 Order name: CONS Physician Consult [facility] 09/28 09:48 Order name: Accucheck; Complete Time: 10:11 ec2 09/28 09:48 Order name: Cardiac monitoring; Complete Time: 10:16 ec2 09/28 09:48 Order name: EKG - Nurse/Tech; Complete Time: 10:16 ec2 09/28 09:48 Order name: IV Saline Lock; Complete Time: 11:00 ec2 09/28 09:48 Order name: Labs collected and sent; Complete Time: 11:00 ec2 09/28 09:48 Order name: NPO; Complete Time: 10:11 ec2 09/28 09:48 Order name: O2 Per Protocol; Complete Time: 10:11 ec2 09/28 09:48 Order name: O2 Sat Monitoring; Complete Time: 10:11 ec2 09/28 09:48 Order name: Stroke Swallow Screen; Complete Time: 15:40 ec2 Administered Medications: No medications were administered Point of Care Testing: Blood Glucose: 09:50 Blood Glucose: 125 mg/dL; aa5 Ranges: Critical Glucose Levels:Adult <50 mg/dl or >400 mg/dl <40 mg/dl or >180 mg/dl Disposition Summary: 09/29/23 12:54 Hospitalization Ordered Notes: Hospitalization Status: Inpatient Admission ec2 Provider: Julio C Rosario ec2 Location: Telemetry/[facility] (Inpatient) ec2 Condition: Stable ec2 Problem: new ec2 Symptoms: are unchanged ec2 Bed/Room Type: Standard ec2 Room Assignment: 401(09/29/23 15:12) eb Diagnosis - Weakness ec2 Forms: - Medication Reconciliation Form ec2 - SBAR form ec2 - Leadership Thank You Letter ec2 NIH Stroke Scale - NIH Stroke Score Date: 09/29/2023 Time: 09:43 Total Score = 3 10. Dysarthria (speech clarity - read or repeat words) - 0(Normal) 11. Extinction and Inattention (visual/tactile/auditory/spatial/personal) - 0(No abnormality) 1a. Level of Consciousness (LOC) - 0(Alert) 1b. Level of Consciousness (LOC) (Month \T\ Age) - 0(Both) 1c. LOC Commands (Open \T\ Closes Eyes/Home Health Clinical Supervisor) - 0(Both) 2. Best Gaze (Lateral Gaze Paresis) - 0(Normal) 3. Visual Field Loss - 0(No visual loss) 4. Facial Palsy - 0(Normal) 5a. Left Arm: Motor (10-second hold) - 1(Drift) 5b. Right Arm: Motor (10-second hold) - 0(No drift) 6a. Left Leg: Motor (5-second hold - always test supine) - 1(Drift) 6b. Right Leg: Motor (5-second hold - always test supine) - 0(No drift) 7. Limb Ataxia (finger/nose \T\ heel/scott - test with eyes open) - 0(Absent) 8. Sensory Loss (pinprick arms/legs/face) - 1(Mild to moderate loss) 9. Best Language: Aphasia (description/naming/reading) - 0(No aphasia) Initials: aa5 NIH Stroke Scale - NIH Stroke Score Date: 09/29/2023 Time: 09:48 Total Score = 4 10. Dysarthria (speech clarity - read or repeat words) - 0(Normal) 11. Extinction and Inattention (visual/tactile/auditory/spatial/personal) - 0(No abnormality) 1a. Level of Consciousness (LOC) - 0(Alert) 1b. Level of Consciousness (LOC) (Month \T\ Age) - 0(Both) 1c. LOC Commands (Open \T\ Closes Eyes/Home Health Clinical Supervisor) - 0(Both) 2. Best Gaze (Lateral Gaze Paresis) - 0(Normal) 3. Visual Field Loss - 0(No visual loss) 4. Facial Palsy - 0(Normal) 5a. Left Arm: Motor (10-second hold) - 2(Drift, some effort against gravity) 5b. Right Arm: Motor (10-second hold) - 0(No drift) 6a. Left Leg: Motor (5-second hold - always test supine) - 1(Drift) 6b. Right Leg: Motor (5-second hold - always test supine) - 0(No drift) 7. Limb Ataxia (finger/nose \T\ heel/scott - test with eyes open) - 0(Absent) 8. Sensory Loss (pinprick arms/legs/face) - 1(Mild to moderate loss) 9. Best Language: Aphasia (description/naming/reading) - 0(No aphasia) Initials: ec2 NIH Stroke Scale - NIH Stroke Score Date: 09/29/2023 Time: 11:00 Total Score = 3 10. Dysarthria (speech clarity - read or repeat words) - 0(Normal) 11. Extinction and Inattention (visual/tactile/auditory/spatial/personal) - 0(No abnormality) 1a. Level of Consciousness (LOC) - 0(Alert) 1b. Level of Consciousness (LOC) (Month \T\ Age) - 0(Both) 1c. LOC Commands (Open \T\ Closes Eyes/Home Health Clinical Supervisor) - 0(Both) 2. Best Gaze (Lateral Gaze Paresis) - 0(Normal) 3. Visual Field Loss - 0(No visual loss) 4. Facial Palsy - 0(Normal) 5a. Left Arm: Motor (10-second hold) - 1(Drift) 5b. Right Arm: Motor (10-second hold) - 0(No drift) 6a. Left Leg: Motor (5-second hold - always test supine) - 1(Drift) 6b. Right Leg: Motor (5-second hold - always test supine) - 0(No drift) 7. Limb Ataxia (finger/nose \T\ heel/scott - test with eyes open) - 0(Absent) 8. Sensory Loss (pinprick arms/legs/face) - 1(Mild to moderate loss) 9. Best Language: Aphasia (description/naming/reading) - 0(No aphasia) Initials: aa5 NIH Stroke Scale - NIH Stroke Score Date: 09/29/2023 Time: 15:00 Total Score = 3 10. Dysarthria (speech clarity - read or repeat words) - 0(Normal) 11. Extinction and Inattention (visual/tactile/auditory/spatial/personal) - 0(No abnormality) 1a. Level of Consciousness (LOC) - 0(Alert) 1b. Level of Consciousness (LOC) (Month \T\ Age) - 0(Both) 1c. LOC Commands (Open \T\ Closes Eyes/Home Health Clinical Supervisor) - 0(Both) 2. Best Gaze (Lateral Gaze Paresis) - 0(Normal) 3. Visual Field Loss - 0(No visual loss) 4. Facial Palsy - 0(Normal) 5a. Left Arm: Motor (10-second hold) - 1(Drift) 5b. Right Arm: Motor (10-second hold) - 0(No drift) 6a. Left Leg: Motor (5-second hold - always test supine) - 1(Drift) 6b. Right Leg: Motor (5-second hold - always test supine) - 0(No drift) 7. Limb Ataxia (finger/nose \T\ heel/scott - test with eyes open) - 0(Absent) 8. Sensory Loss (pinprick arms/legs/face) - 1(Mild to moderate loss) 9. Best Language: Aphasia (description/naming/reading) - 0(No aphasia) Initials: aa5 Signatures: Dispatcher [employer] Rosamaria Moss, RN ALEJANDRO aa5 Celine Dumont RN RN Teresa Wang Faisal Dhillon MD MD ec2 Corrections: (The following items were deleted from the chart) 10:38 09:50 Home Meds: Aspirin Oral; irving 15:12 12:54 ec2
--- NOTE | 2023-09-29 12:55 | ER ---
Nurse's Notes [facility] Name: William Benitez Age: 77 yrs Sex: Male : 1945 Arrival Date: 09/29/2023 Time: 09:30 Bed 20 Private MD: Diagnosis: Weakness Presentation: 09/28 09:43 An acute neurological deficit is present. Pre-hospital glucose is not applicable to aa5 this patient. 09:43 Chief complaint: Left arm and hand numbness and weakness upon waking today at 0600. hb Last known well was last night at 11pm. Coronavirus screen: At this time, the client does not indicate any symptoms associated with coronavirus-19. Ebola Screen: No symptoms or risks identified at this time. Initial Sepsis Screen: Does the patient meet any 2 criteria? No. Patient's initial sepsis screen is negative. Does the patient have a suspected source of infection? No. Patient's initial sepsis screen is negative. Risk Assessment: Do you want to hurt yourself or someone else? Patient reports no desire to harm self or others. Onset of symptoms was September 29, 2023 at 06:00. 09:43 Acuity: SCARLETT 2 hb Triage Assessment: 09:45 General: Appears in no apparent distress. Behavior is calm, cooperative. Pain: Denies hb pain. Neuro: Level of Consciousness is awake, alert, obeys commands, Oriented to person, place, time, situation, Order Entry Administrator are weak on left Weakness in left hand(s) Gait is shuffling, Speech is normal, Facial symmetry appears normal, Pupils are PERRLA, Numbness in left arm. Respiratory: Respiratory effort is even, unlabored, Respiratory pattern is regular, symmetrical. 09:45 Cardiovascular: Patient's skin is warm and dry. hb 09:45 The onset of the patients symptoms was more than six hours ago. aa5 09:45 The onset of the patients symptoms was September 29, 2023 at 06:00. aa5 Stroke Activation: Symptom onset > 6 hours Physician: ED Attending; Name: ; Notified At: ; Arrived At: Physician: Mid-Level Provider; Name: ; Notified At: ; Arrived At: Physician: [not used]; Name: ; Notified At: ; Arrived At: Physician: [not used]; Name: ; Notified At: ; Arrived At: Physician: [not used]; Name: ; Notified At: ; Arrived At: Historical: - Allergies: 09:49 No Known Allergies; hb - Home Meds: 10:29 Aspirin 81mg Oral daily [Active]; isosorbide mononitrate 120 mg Oral Tablet, Extended aa5 Release 24 hr daily [Active]; hydralazine 100 mg Oral tablet 4 times a day [Active]; nifedipine 90 mg Oral tablet, extended release 2 times per day [Active]; omeprazole 20 mg Oral tablet, delayed release (enteric coated) once [Active]; prazosin 2 mg oral capsule once [Active]; clonazepam 0.5 mg Oral tablet every day at bedtime [Active]; pregabalin 50 mg Oral capsule every day at bedtime [Active]; atorvastatin 80 mg oral tablet every day at bedtime [Active]; carbidopa-levodopa 25-250 mg Oral Tablet,disintegrating 3 times per day for parkinsonism [Active]; carvedilol 25 mg oral tablet 2 times per day [Active]; bumetanide 2 mg Oral tablet 2 times per day [Active]; metolazone 2.5 mg oral tablet every other day [Active]; fexofenadine 60 mg Oral tablet once [Active]; allopurinol 50mg Oral tablet every other day [Active]; cyanocobalamin (vitamin B-12) 1,000 mcg oral tablet once [Active]; AREDS Viteyes twice a day [Active]; clonidine 0.2mg patch every 7 days [Active]; Vitamin D Oral 5000 unit daily [Active]; 10:29 Insulin SQ [Active]; aa5 - PMHx: 09:50 Hydrocephalus; hb 10:00 Hypertensive disorder; Diabetes mellitus; Parkinson's disease; Kidney failure; aa5 10:29 Restless leg syndrome; Anemia; Gout; aa5 - PSHx: 09:50 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 - Infectious Disease History:: Denies. - Social history:: Smoking status: Patient denies any tobacco usage or history of. Screenin:10 [facility] ED Fall Risk Assessment (Adult) History of falling in the last 3 months, aa5 including since admission No falls in past 3 months (0 pts) Confusion or Disorientation No (0 pts) Intoxicated or Sedated No (0 pts) Impaired Gait Yes (1 pt) Mobility Assist Device Used Yes (1 pt) Altered Elimination Yes (1 pt) Score/Fall Risk Level 3 or more points = High Risk Oriented to surroundings, Maintained a safe environment, Educated pt \\T\\ family on fall prevention, incl call for assistance when getting out of bed. Abuse screen: Denies threats or abuse. Nutritional screening: No deficits noted. Tuberculosis screening: No symptoms or risk factors identified. Assessment: 09:43 Reassessment: CODE STROKE CALLED. hb 09:43 VAN Scoring: Arm Drift: Minor drift Visual Disturbance: No visual disturbance noted. aa5 Aphasia: No aphasia noted. Neglect: No neglect noted. 09:43 General: Appears comfortable, Behavior is calm, cooperative. Pain: Denies pain. Neuro: aa5 Level of Consciousness is awake, alert, obeys commands, Oriented to person, place, time, situation, Order Entry Administrator are weak on left Weakness in left hand(s) arm(s) leg(s) foot/feet Speech is normal, Facial symmetry appears normal, Pupils are PERRLA, Numbness in left arm Reports left hand weakness. Cardiovascular: Heart tones S1 S2 present Rhythm is regular. Respiratory: Airway is patent Respiratory effort is even, unlabored, Respiratory pattern is regular, symmetrical. GI: Abdomen is obese. : No signs and/or symptoms were reported regarding the genitourinary system. EENT: No signs and/or symptoms were reported regarding the EENT system. Derm: Skin is dry, Skin is normal, Skin temperature is warm. Musculoskeletal: Range of motion: limited in left wrist. 09:44 Reassessment: DR DHILLON AT BEDSIDE. hb 09:45 Reassessment: BGL 125. hb 09:48 Reassessment: PT TO CT VIA STRETCHER WITH ROSAMARIA ALLEN. hb 09:57 Reassessment: Pt in CT accompanied by me. . aa5 09:59 TNKase (Tenecteplase) Screening: Contraindications: Patient reports onset of signs and aa5 symptoms of stroke greater than 6 hours ago: Yes. 10:08 Reassessment: Pt back from CT scan, Wendy Calix RN completing EKG and lab at bedside aa5 attempting lab collection. . 10:29 Reassessment: Wendy Calix RN attempting US IV. Phlebotomy was unable to obtain labs. . aa5 11:00 Neuro: Level of Consciousness is awake, alert, obeys commands, Oriented to person, aa5 place, time, situation. Cardiovascular: Rhythm is sinus bradycardia. Respiratory: Airway is patent Respiratory effort is even, unlabored, Respiratory pattern is regular, symmetrical. Derm: Skin is dry, Skin is normal, Skin temperature is warm. 11:00 [place] Swallow Protocol Exclusion Criteria: Unable to remain alert for testing: No NPO aa5 for medical/surgical reason by provider order No Tracheostomy tube present No No thin liquids due to preexisting dysphagia/baseline modified diet thickened liquids No Exclusion Criteria Result: Proceed Brief Cognitive Screen What is your name? Normal, Where are you right now? Normal, What year is it? Normal. Oral Mechanism Examination Facial Symmetry: Normal, Motion: Normal, Lip Closure: Normal, Oral Mechanism Result: Normal. 3 oz Water Swallow Challenge: Pt able to drink all water without stopping, coughing, choking or throat clearing: Yes Result: PASS MD Notified: Faisal Dhillon MD. 12:00 Neuro: Level of Consciousness is awake, alert, obeys commands, Oriented to person, aa5 place, time, situation, Order Entry Administrator are weak on left Weakness in left hand(s) arm(s) leg(s) foot/feet Speech is normal, Facial symmetry appears normal. Respiratory: Airway is patent Respiratory effort is even, unlabored, Respiratory pattern is regular, symmetrical. Derm: Skin is dry, Skin is normal, Skin temperature is warm. 12:00 Cardiovascular: Rhythm is sinus bradycardia. aa5 13:00 Reassessment: Pt resting in bed with eyes closed, respirations are even and unlabored, aa5 skin is normal/warm/dry. . 14:00 Reassessment: Pt resting in bed with eyes closed, respirations are even and unlabored, aa5 skin is normal/warm/dry. . 14:15 Reassessment: MARCIE Bentley (Hospitalist) at bedside. . aa5 15:00 Neuro: Level of Consciousness is awake, alert, obeys commands, Oriented to person, aa5 place, time, situation, Order Entry Administrator are weak on left Weakness in left hand(s) arm(s) leg(s) foot/feet Speech is normal, Facial symmetry appears normal, Pupils are PERRLA, Numbness in left arm. Respiratory: Airway is patent Respiratory effort is even, unlabored, Respiratory pattern is regular, symmetrical. Derm: Skin is dry, Skin is normal, Skin temperature is warm. 15:53 Reassessment: Contacted hospitalist (Aide Bentley NP) to notify of inability to aa5 obtain IV access in the ER, PROFESSIONAL DEVELOPMENT MANAGER states she will place order for midline. Contacted ALEJANDRO Win (admitting nurse) to notify pt will be transferred to Room 401 with pending order for midline placement. . Vital Signs: 10:07 BP 171 / 56; Pulse 52; Resp 18 S; Temp 97.5(TE); Pulse Ox 100% on R/A; aa5 11:00 BP 156 / 70; Pulse 50; Resp 16 S; Pulse Ox 100% on R/A; aa5 12:00 BP 191 / 67; Pulse 48; Resp 16 S; Pulse Ox 100% on R/A; aa5 13:00 BP 193 / 80; Pulse 44; Resp 18 S; Temp 97.6(TE); Pulse Ox 99% on R/A; aa5 14:00 BP 187 / 57; Pulse 48; Resp 16 S; Pulse Ox 100% on R/A; aa5 15:00 BP 177 / 56; Pulse 47; Resp 18 S; Pulse Ox 100% on R/A; aa5 NIH Stroke Scale Scores: 09:43 NIHSS Score: 3 aa5 09:48 NIHSS Score: 4 ec2 11:00 NIHSS Score: 3 aa5 15:00 NIHSS Score: 3 aa5 ED Course: 09:32 Patient arrived in ED. ts1 09:33 Faisal Dhillon MD is Attending Physician. ec2 09:40 Rosamaria Trejo, RN is Primary Nurse. aa5 09:43 Patient has correct armband on for positive identification. Arm band placed on. aa5 09:48 Triage completed. hb 09:57 Missed attempt(s): 22 gauge in left antecubital area. Bleeding controlled, band aid aa5 applied, catheter tip intact. 10:02 CT Stroke Brain w/o Contrast In Process Unspecified. EDMS 10:07 Placed in gown. Bed in low position. Call light in reach. Side rails up X2. Client aa5 placed on continuous cardiac and pulse oximetry monitoring. NIBP monitoring applied. fulfillment representative on. Pulse ox on. NIBP on. 10:16 EKG done, by ED staff, reviewed by Faisal Dhillon MD. aa5 10:33 Accessed peripheral vein via ultrasound, utilizing dynamic ultrasound technique using mb9 ,sterile technique, per hospital protocol. Clean \\T\\ dry. Dressing intact. Good blood return. Flushes easily. 22 g to left FA. 10:34 Initial lab(s) drawn, by me, sent to lab. mb9 10:55 CT Neck Angio In Process Unspecified. EDMS 10:55 Head angio In Process Unspecified. EDMS 10:59 Stroke CXR 1 View In Process Unspecified. EDMS 12:54 Julio C Rosario is Hospitalizing Provider. ec2 15:30 IV discontinued, intact, bleeding controlled, No redness/swelling at site. Pressure aa5 dressing applied, IV catheter was discontinued by hospitalist, pt's states "they came and she took the IV out because she said it was almost out (referring to catheter)". Pt is a hard stick. Gaurav Hickey RN currently at bedside attempting US IV. 15:50 Primary Nurse role handed off by Rosamaria Trejo RN hb 16:08 No provider procedures requiring assistance completed. aa5 Administered Medications: No medications were administered Medication: 16:08 VIS not applicable for this client. aa5 Point of Care Testing: Blood Glucose: 09:50 Blood Glucose: 125 mg/dL; aa5 Ranges: Outcome: 12:54 Decision to Hospitalize by Provider. ec2 16:08 Admitted to Tele accompanied by tech, family with patient, via stretcher, with chart, aa5 Other Report faxed to ALEJANDRO Win 16:08 Condition: stable 16:08 Instructed on the need for admit, Demonstrated understanding of instructions, 16:15 Patient left the ED. em1 NIH Stroke Scale - NIH Stroke Score Date: 09/29/2023 Time: 09:43 Total Score = 3 10. Dysarthria (speech clarity - read or repeat words) - 0(Normal) 11. Extinction and Inattention (visual/tactile/auditory/spatial/personal) - 0(No abnormality) 1a. Level of Consciousness (LOC) - 0(Alert) 1b. Level of Consciousness (LOC) (Month \\T\\ Age) - 0(Both) 1c. LOC Commands (Open \\T\\ Closes Eyes/Elementary Principal) - 0(Both) 2. Best Gaze (Lateral Gaze Paresis) - 0(Normal) 3. Visual Field Loss - 0(No visual loss) 4. Facial Palsy - 0(Normal) 5a. Left Arm: Motor (10-second hold) - 1(Drift) 5b. Right Arm: Motor (10-second hold) - 0(No drift) 6a. Left Leg: Motor (5-second hold - always test supine) - 1(Drift) 6b. Right Leg: Motor (5-second hold - always test supine) - 0(No drift) 7. Limb Ataxia (finger/nose \\T\\ heel/scott - test with eyes open) - 0(Absent) 8. Sensory Loss (pinprick arms/legs/face) - 1(Mild to moderate loss) 9. Best Language: Aphasia (description/naming/reading) - 0(No aphasia) Initials: aa5 NIH Stroke Scale - NIH Stroke Score Date: 09/29/2023 Time: 09:48 Total Score = 4 10. Dysarthria (speech clarity - read or repeat words) - 0(Normal) 11. Extinction and Inattention (visual/tactile/auditory/spatial/personal) - 0(No abnormality) 1a. Level of Consciousness (LOC) - 0(Alert) 1b. Level of Consciousness (LOC) (Month \\T\\ Age) - 0(Both) 1c. LOC Commands (Open \\T\\ Closes Eyes/Elementary Principal) - 0(Both) 2. Best Gaze (Lateral Gaze Paresis) - 0(Normal) 3. Visual Field Loss - 0(No visual loss) 4. Facial Palsy - 0(Normal) 5a. Left Arm: Motor (10-second hold) - 2(Drift, some effort against gravity) 5b. Right Arm: Motor (10-second hold) - 0(No drift) 6a. Left Leg: Motor (5-second hold - always test supine) - 1(Drift) 6b. Right Leg: Motor (5-second hold - always test supine) - 0(No drift) 7. Limb Ataxia (finger/nose \\T\\ heel/scott - test with eyes open) - 0(Absent) 8. Sensory Loss (pinprick arms/legs/face) - 1(Mild to moderate loss) 9. Best Language: Aphasia (description/naming/reading) - 0(No aphasia) Initials: ec2 NIH Stroke Scale - NIH Stroke Score Date: 09/29/2023 Time: 11:00 Total Score = 3 10. Dysarthria (speech clarity - read or repeat words) - 0(Normal) 11. Extinction and Inattention (visual/tactile/auditory/spatial/personal) - 0(No abnormality) 1a. Level of Consciousness (LOC) - 0(Alert) 1b. Level of Consciousness (LOC) (Month \\T\\ Age) - 0(Both) 1c. LOC Commands (Open \\T\\ Closes Eyes/Elementary Principal) - 0(Both) 2. Best Gaze (Lateral Gaze Paresis) - 0(Normal) 3. Visual Field Loss - 0(No visual loss) 4. Facial Palsy - 0(Normal) 5a. Left Arm: Motor (10-second hold) - 1(Drift) 5b. Right Arm: Motor (10-second hold) - 0(No drift) 6a. Left Leg: Motor (5-second hold - always test supine) - 1(Drift) 6b. Right Leg: Motor (5-second hold - always test supine) - 0(No drift) 7. Limb Ataxia (finger/nose \\T\\ heel/scott - test with eyes open) - 0(Absent) 8. Sensory Loss (pinprick arms/legs/face) - 1(Mild to moderate loss) 9. Best Language: Aphasia (description/naming/reading) - 0(No aphasia) Initials: aa5 NIH Stroke Scale - NIH Stroke Score Date: 09/29/2023 Time: 15:00 Total Score = 3 10. Dysarthria (speech clarity - read or repeat words) - 0(Normal) 11. Extinction and Inattention (visual/tactile/auditory/spatial/personal) - 0(No abnormality) 1a. Level of Consciousness (LOC) - 0(Alert) 1b. Level of Consciousness (LOC) (Month \\T\\ Age) - 0(Both) 1c. LOC Commands (Open \\T\\ Closes Eyes/Elementary Principal) - 0(Both) 2. Best Gaze (Lateral Gaze Paresis) - 0(Normal) 3. Visual Field Loss - 0(No visual loss) 4. Facial Palsy - 0(Normal) 5a. Left Arm: Motor (10-second hold) - 1(Drift) 5b. Right Arm: Motor (10-second hold) - 0(No drift) 6a. Left Leg: Motor (5-second hold - always test supine) - 1(Drift) 6b. Right Leg: Motor (5-second hold - always test supine) - 0(No drift) 7. Limb Ataxia (finger/nose \\T\\ heel/scott - test with eyes open) - 0(Absent) 8. Sensory Loss (pinprick arms/legs/face) - 1(Mild to moderate loss) 9. Best Language: Aphasia (description/naming/reading) - 0(No aphasia) Initials: aa5 Signatures: Dispatcher [employer] [place] em1 Rosamaria Trejo RN RN aa5 Celine Dumont RN RN Karla Bautista, PA-C PA-C sb4 Wendy Herrera RN RN mb9 Kristi Beard PAS PAS ts1 Faisal Dhillon MD MD ec2 Corrections: (The following items were deleted from the chart) 10: 08:45 Chief complaint: Left arm and hand numbness and weakness upon waking hb today at 0600. Last known well was last night at 11pm. : 08:45 Coronavirus screen: At this time, the client does not indicate any hb symptoms associated with coronavirus-19. : 08:45 Ebola Screen: No symptoms or risks identified at this time. [facility] : 08:45 Initial Sepsis Screen: Does the patient meet any 2 criteria? No. hb Patient's initial sepsis screen is negative. Does the patient have a suspected source of infection? No. Patient's initial sepsis screen is negative. : 08:45 Risk Assessment: Do you want to hurt yourself or someone else? Patient hb reports no desire to harm self or others. : 08:45 Onset of symptoms was September 29, 2023 at 06:00 [facility] : 08:45 Chief complaint: Left arm and hand numbness and weakness upon waking hb today at 0600. Last known well was last night at 11pm. : 08:45 Method Of Arrival: Ambulatory [facility] : 08:45 Acuity: SCARLETT 2 [facility] : 08:44 General: Appears in no apparent distress. Behavior is calm, cooperative, [facility] 10: 08:44 Pain: Denies pain. [facility] 10: 08:44 Neuro: Level of Consciousness is awake, alert, obeys commands, Oriented hb to person, place, time, situation, Order Entry Administrator are weak on left Weakness in left hand(s) Gait is shuffling, Speech is normal, Facial symmetry appears normal, Pupils are PERRLA, Numbness in left arm hb 10: 08:44 Cardiovascular: Patient's skin is warm and dry. hb hb 10: 08:44 Respiratory: Respiratory effort is even, unlabored, Respiratory pattern hb is regular, symmetrical, hb 10:38 09:50 Home Meds: Aspirin Oral; hb aa5 12: 09:51 Arm band placed on hb aa5 12: 09:45 Patient has correct armband on for positive identification. aa5 aa5 16:09 15:49 Patient left the ED. sb4 aa5 16:13 09:57 Blood Glucose: Blood Glucose Tdntqlw=207 mg/dL. aa5 aa5
--- NOTE | 2023-09-29 13:53 | P.HP ---
Certification for Inpatient Patient admitted to: Observation With expected LOS: <2 Midnights Patient will require the following post-hospital care: None Practitioner: I am a practitioner with admitting privileges, knowledge of patient current condition, hospital course, and medical plan of care. Services: Services provided to patient in accordance with Admission requirements found in Title 42 Section 412.3 of the Code of Federal Regulations Patient History Date of Service: 09/29/23 Reason for admission: CVA rule out History of Present Illness: William Benitez si a 77 year old male with Pmhx Hypertensive disorder, Diabetes mellitus, Parkinson's disease, Kidney failure, Hydrocephalus (right ventricular shunt 2022), Restless leg syndrome, Anemia, and Gout who presents to the ED with chief complaint of left arm tingling and decreased left hand mobility. His reports he has been experiencing bradycardia and his doctor reduced his Beta becka on . He is still having HR of 39. Head CT reports no hydrocephalus present, no evidence of an acute intracranial process, stable ventricular caliber with the right ventriculostomy catheter in place. On evaluation, his left arm is weak with decreased hand mobility, he conversing well, able to follow commands, and in no acute distress. NIHSS 3- left arm drift, left leg drift, sensory loss. Of note, He reports having hydrocephalus in 2022 requiring a ventricular shunt. At that time he had lost all mobility. Initial vitals BP 171 / 56; Pulse 52; Resp 18 S; Temp 97.5(TE); Pulse Ox 100% on R/A Laboratory evaluation troponin 59.2, BUN/creatinine 87/4.31, GFR 14, serum glucose 126, potassium 3.2 CXR reports "Mild central interstitial prominence. Moderate cardiomegaly. No pneumothorax or effusion. The mediastinal contours are unremarkable. Ventricular shunt catheter traverses along the right chest wall. Findings suggesting congestive heart failure." CT Head without contrast reports no hydrocephalus present, No evidence of an acute intracranial process. Stable ventricular caliber with the right ventriculostomy catheter in place. CT brain angio reports "No evidence of large vessel occlusion or flow-limiting stenosis." CT neck angio reports "No evidence of large vessel occlusion or flow-limiting stenosis." William will be admitted to hospitalist service for further evaluation. Dr. Silvestre, Dr. Willis, and Dr. Dumont have been consulted Allergies No Known Allergies Allergy (Verified 03/15/22 11:36) Home Medications: Allopurinol 150 mg PO DAILY 01/24/21 Aspirin [Aspirin EC 81 MG] 81 mg PO DAILY 01/24/21 Duloxetine HCl [Cymbalta] 120 mg PO DAILY 01/24/21 Finasteride [Proscar*] 5 mg PO BEDTIME 01/24/21 Insulin Detemir [Levemir Flextouch] 50 unit SQ BEDTIME 01/24/21 Isosorbide Mononitrate [Isosorbide Mononitrate ER] 120 mg PO DAILY 01/24/21 Losartan Potassium [Cozaar] 100 mg PO BEDTIME 01/24/21 Omeprazole Magnesium [Prilosec Otc] 20 mg PO NOON 01/24/21 Prazosin HCl [Minipress] 5 mg PO BEDTIME 01/24/21 Pregabalin [Lyrica*] 50 mg PO BEDTIME 01/24/21 clonazePAM [Klonopin*] 0.5 mg PO BEDTIME 01/24/21 Cholecalciferol (Vitamin D3) [Vitamin D 5,000 IU Cap*] 5,000 unit PO NOON 05/25/21 Furosemide 80 mg PO DAILY 05/25/21 Hydralazine HCl 100 mg PO TID 05/25/21 Alprostadil [Edex] 40 mcg IC PRN PRN 03/15/22 Atorvastatin Calcium [Lipitor] 80 mg PO BEDTIME 03/15/22 Bupropion HCl [Budeprion Xl] 300 mg PO DAILY 03/15/22 Carbidopa/Levodopa [Carbidopa-Levo 25-100 mg Odt] 2 tab PO TID 03/15/22 Carboxymethylcellulose Sodium [Artificial Tears] 1 drop OP DAILY 03/15/22 Cinnamon Bark [Cinnamon] 2,000 mg PO NOON 03/15/22 Cyanocobalamin (Vitamin B-12) [Vitamin B-12] 1,000 mcg PO NOON 03/15/22 Diclofenac Sodium [Arthritis Pain] 1 natalie TP PRN PRN 03/15/22 Fexofenadine HCl [Judi Allergy] 180 mg PO DAILY 03/15/22 Fluticasone [Flonase 50MCG Nasal [place]*] 1 spray NS DAILY 03/15/22 Insulin Aspart [Insulin Aspart Flexpen] 40 unit SQ DAILY 03/15/22 NIFEdipine [Nifedipine ER] 90 mg PO DAILY 03/15/22 Vit A/Vit C/Vit E/Zinc/Copper [Eye Multivitamin Tablet] 2 each PO NOON 03/15/22 Ciprofloxacin HCl [Cipro] 500 mg PO DAILY #3 03/27/22 Codeine/APAP [Tylenol W/Codeine #3 tab] 1 tab PO Q6HP PRN #12 tab 03/27/22 - Past Medical/Surgical History -: Hyperlipidemia -: Hypertension -: Hydrocephalus status post ventricular shunt -: MARYSOL -: Diabetes mellitusIDDM -: CKD -: Parkinson's -: AV fistula to right arm -: 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 - Family History Family History: Reviewed- Non-Contributory - Social History Smoking Status: Never smoker Alcohol use: No CD- Drugs: No Review of Systems Musculoskeletal: Arm Pain (left, tingling, weakness, left hand decreased mobility) Physical Examination - Physical Exam General: Alert, In no apparent distress, Oriented x3 HEENT: Atraumatic, Normocephalic Neck: Supple, 2+ carotid pulse no bruit Respiratory: Clear to auscultation bilaterally, Normal air movement Cardiovascular: Normal pulses, Irregular heart rate/rhythm (bradycardia) Capillary refill: <2 Seconds Gastrointestinal: Normal bowel sounds, Soft and benign Musculoskeletal: No clubbing Integumentary: No rashes Neurological: Normal speech, Normal tone Other Physical/Emotional Findings: NIHSS 3 - Studies Laboratory Data (last 24 hrs) 09/29/23 09/29/23 09/29/23 10:32 10:32 10:32 WBC 8.60 Hgb 11.1 L Hct 34.1 L Plt Count 111 L PT 12.2 INR 1.09 APTT 33.7 Sodium 137 Potassium 3.2 L BUN 87 H Creatinine 4.31 H Glucose 126 H Total Bilirubin 0.5 AST 15 ALT 16 Alkaline Phosphatase 57 Assessment and Plan - Plan Assessment and plan CVA rule out History of hydrocephalus status post ventricular shunt (May 2022) -CT Head without contrast reports no hydrocephalus present, No evidence of an acute intracranial process. Stable ventricular caliber with the right ventriculostomy catheter in place. -CT brain angio reports "No evidence of large vessel occlusion or flow-limiting stenosis." -CT neck angio reports "No evidence of large vessel occlusion or flow-limiting stenosis." - Consulted Neurology - recommendations appreciated - Admit under observation status - NIHSS = 3 left arm drift, left leg drift, sensory loss - Allow permissive hypertension for tonight, hydralazine if SBP > 200 -bedside swallow test - q4hr neurochecks - Ordered MR brain - Ordered TTE - NURSE ANESTHETIST/PT/OT evaluation requested - Ordered risk profile: Hgb A1c, lipid panel, TSH - Started aspirin + atorvastatin, folic acid NSTEMI Prolonged QT/QTc - EKG: No obvious ST segment changes - troponin 59.2, serial pending - Ordered transthoracic echocardiogram - Consult Cardiology - recommendations appreciated - S/P aspirin 162 mg PO - Start daily baby aspirin and statin - Symptom control with PRN acetaminophen, nitroglycerin, morphine -continuous telemetry -TSH/FreeT4, A1C, lipid panel pending -QT/QTc 506/457, hold medications that prolong QT Chronic Kidney disease Hypokalemia -BUN/creatinine 87/4.31, GFR 14 -Right arm AV fistula present -Consult Dr. Dumont -Recommend 500 NS at 50 ml/hr Diabetes mellitusIDDM -Accu-Chek with sliding scale insulin -Serum glucose 126 History of anemia Thrombocytopenia -monitor H/H daily -H/H 11.1/34.1, platelets 111, on heparin for DVT -transfuse PRN History of HTN/HLD History of Hypotension History of MARYSOL History of Parkinson's History of Restless leg syndrome History of Gout -Restart home medication when appropriate -BP 171/56, HR 39 DVT PPx heparin Full code LOS 2 days Discharge Plan: Home Plan to discharge in: 48 Hours - Advance Directives Does patient have a Living Will: Yes Does patient have a Durable POA for Healthcare: No
[2023-09-29 15:53] LABS: RPR Titer ND
[2023-09-29] MEDS: INSULIN REGULAR (HUMAN) 100 UNIT/ML SQ SCH (16:30)
[2023-09-29] MEDS: HYDRALAZINE HCL 20 MG/ML VIAL IV ONE ×2 (16:59)
[2023-09-29] MEDS: ASPIRIN EC 81 MG TAB PO ONE ×2 (17:16→17:24)
[2023-09-29] MEDS: NA CHLORIDE 0.9% 1,000 ML IV SCH (17:24)
[2023-09-29] MEDS: ASPIRIN EC 81 MG TAB PO SCH (17:24)
[2023-09-29] MEDS: NA CHLORIDE 0.9% 500 ML IV SCH (18:38)
[2023-09-29] MEDS: ATORVASTATIN 40 MG TAB PO SCH (21:56)
[2023-09-29] MEDS: Mupirocin NASAL 2 APPL/1 GM TUBE NAS SCH (22:02)
[2023-09-29] MEDS: HYDRALAZINE HCL 20 MG/ML VIAL IV PRN (22:35)
[2023-09-30 05:07] LABS: RPR (Rapid Plasma Reagin) NON-REACT (NON-REACT)
[2023-09-30 06:38] LABS: Absolute Eosinophils 0.2 K/uL (0-0.5); Absolute Monocytes 0.7 K/uL (0.1-1.3); Absolute Neutrophil 3.5 K/uL (1.8-8.0); Basophils % 0.7 % (0-1.3); Eosinophils % 2.8 % (0-4.4); Hematocrit 29.9 % (39.6-49.0); Lymphocytes % 19.4 % (15.3-44.8); MCH 25.9 pg (27.0-35.0); MCHC 33.5 g/dL (32.0-36.0); MCV 77.3 fL (80-100); MPV 10.8 fL (7.6-11.3); Monocytes % 12.7 % (3.3-12.3); Neutrophils % 64.4 % (41.7-73.7); Nucleated Red Blood Cells % 0.1 % (0-0); Platelets 114 thou/uL (152-406); RBC Red Blood Cell Count 3.87 M/uL (4.33-5.43); Red Cell Distribution Width 15.7 % (12.1-15.2)
[2023-09-30 07:01] LABS: Anion Gap 8.2 mEq/L (5.0-15.0); BUN Blood Urea Nitrogen 76 mg/dL (7-18); Bicarbonate 28 mEq/L (21-32); Glomerular Filtration Rate 15 ml/min (=/>90); Glucose Level 218 mg/dL (74-106); HDL Cholesterol 38 mg/dL (40-60); LDL Cholesterol, Calculated 48 mg/dL (<130); LDL Cholesterol,Calc NonReport 48; Magnesium 2.5 mg/dL (1.6-2.4); Phosphorus 4.1 mg/dL (2.5-4.9); Potassium 3.2 mEq/L (3.5-5.1); Sodium Level 139 mEq/L (136-145)
[2023-09-30 07:10] LABS: C-Reactive Protein < 2.90 mg/L (<3.00)
[2023-09-30 07:38] LABS: T4,Total 7.6 ug/dL (4.5-12.1)
[2023-09-30] MEDS: [UNRECOGNIZED DRUG - REMARK] PO SCH (08:36)
[2023-09-30] MEDS: ASPIRIN EC 81 MG TAB PO SCH (08:44)
[2023-09-30] MEDS: HYDRALAZINE HCL 25 MG TABLET PO SCH (08:44)
[2023-09-30] MEDS: allopurinoL 100 MG TAB PO SCH (08:44)
[2023-09-30] MEDS: BUMETANIDE 1 MG TABLET PO SCH (08:45)
[2023-09-30] MEDS: CLONIDINE 0.2 MG/PATCH TD SCH (08:45)
[2023-09-30] MEDS: ISOSORBIDE MONO SR 60 MG TAB PO SCH (08:45)
[2023-09-30] MEDS: FOLIC ACID 1 MG TABLET PO SCH (08:45)
[2023-09-30] MEDS: CARBIDOPA/LEVODOPA 25/250 TAB PO SCH (08:46)
[2023-09-30] MEDS: NIFEDIPINE XL 90 MG TABLET PO SCH (08:46)
[2023-09-30] MEDS: POTASSIUM CL SA 10 MEQ TAB PO ONE (08:46)
--- NOTE | 2023-09-30 10:44 | RAD REPORT ---
EXAM DESCRIPTION: MRI - Brain Wo Cont - 09/30/2023 10:20 am CLINICAL HISTORY: R/O CVA COMPARISON: Head CT and CT angiogram 09/29/2023 TECHNIQUE: Multiplanar multisequence MRI of the brain performed without IV contrast. FINDINGS: Interval placement of right frontal approach ventriculostomy catheter, with tip terminatin g in the body of the right lateral ventricle. Shunt reservoir results in extensive susceptibility artifact particularly on the diffusion and gradie nt images, obscuring portions of the right frontal and parietal lobes. Allowing for this, no evidence of acute infarct or other diffusion signal abnormality is appreciated. No evidence of acute intracranial hemorrhage or abnormal extra-axial fluid collections. Hemosiderin s taining is noted along the left frontal sulci, suggesting sequelae of remote subarachnoid blood. Focal encephalomalacia surrounding the shunt catheter. Stable ventriculomegaly, which may relate to centrally predominant volume loss. Midline structures ar e unremarkable. Other periventricular and deep white matter T2/FLAIR hyperintensities, nonspecific, but suggestive of chronic small vessel ischemic changes. No mass effect or midline shift. Major vascular flow voids are preserved. Mastoid air cells and paranasal sinuses are clear. IMPRESSION: Stable ventriculomegaly. The right frontal approach ventricular shunt catheter unchanged in position. No evidence of acute intracranial abnormality allowing for susceptibility artifact present. Focal encephalomalacia surrounding the shunt catheter. Hemosiderin staining is noted along the left f rontal sulci, suggesting sequelae of remote subarachnoid blood.
--- NOTE | 2023-09-30 13:40 | P.PN ---
Date of Service: 09/30/23 Subjective: Reports similar/mild worsening of left upper extremity weakness overnight No other acute events overnight ROS: 10 point ROS as noted above, otherwise negative Physical exam GEN: Alert, oriented, NAD HEENT: Normal conjunctiva, sclera anicteric CV: Regular rate and rhythm, no edema, fistula in place right upper extremity Pulm: Nonlabored respirations on room air ABD: Soft, nontender, nondistended MSK: No joint tenderness Integumentary: No rashes Neuro: Normal speech, normal affect, weakness of the left upper extremity especially distally, sensation intact no other focal neurological deficits Vitals reviewed Assessment and plan CVA rule out History of hydrocephalus status post ventricular shunt (May 2022) -CT Head without contrast reports no hydrocephalus present, No evidence of an acute intracranial process. Stable ventricular caliber with the right ventriculostomy catheter in place. -CT brain angio reports "No evidence of large vessel occlusion or flow-limiting stenosis." -CT neck angio reports "No evidence of large vessel occlusion or flow-limiting stenosis." - Consulted Neurology - recommendations appreciated - Admit under observation status - NIHSS = 1 with left arm drift -Home medications resumed, holding carvedilol given bradycardia -Passed bedside swallow test - q4hr neurochecks -MRI brain negative for CVA - Ordered TTE - ENGRAVER PICTURE/PT/OT evaluation requested - Ordered risk profile: Hgb A1c, lipid panel, TSH - Started aspirin + atorvastatin, folic acid NSTEMI Prolonged QT/QTc - EKG: No obvious ST segment changes - troponin peaked around 80, now downtrending - Ordered transthoracic echocardiogram - Consult Cardiology - recommendations appreciated - S/P aspirin 162 mg PO - Start daily baby aspirin and statin - Symptom control with PRN acetaminophen, nitroglycerin, morphine -continuous telemetry -TSH/FreeT4, A1C, lipid panel pending -QT/QTc 506/457, hold medications that prolong QT Chronic Kidney disease Hypokalemia -BUN/creatinine 87/4.31, GFR 14 -Right arm AV fistula present-has not used yet -Consult Dr. Dumont -Recommend 500 NS at 50 ml/hr Diabetes mellitusIDDM -Accu-Chek with sliding scale insulin -Serum glucose 126 History of anemia Thrombocytopenia -monitor H/H daily -H/H 11.1/34.1, platelets 111, on heparin for DVT -transfuse PRN History of HTN/HLD History of Hypotension History of MARYSOL History of Parkinson's History of Restless leg syndrome History of Gout -Restart home medication when appropriate DVT PPx heparin Full code LOS 2 days Time Spent Managing Pts Care (In Minutes): 35 <Jacques De Leon - Last Filed: 09/30/23 13:40> Patient seen and examined. Plan of care discussed with Jacques De Leon. Patient reports some clumsiness in his left hand MRI of the brain is negative for acute CVA and no acute disease. CVA ruled out. Neurology consulted, I spoke to Dr. Silvestre who will evaluate patient. Echocardiogram is pending. PT evaluation. <ranjan gonzalez - Last Filed: 09/30/23 17:07>
--- NOTE | 2023-09-30 17:04 | EKG ---
Test Date: 2023-09-29 Test Time: 10:11:05 Furniture Cleaner: MB MEASUREMENT RESULTS: Intervals: Rate: 49 AL: 250 QRSD: 96 QT: 506 QTc: 457 [place]: P: 116 AL: 250 QRS: 70 T: 42 INTERPRETIVE STATEMENTS: Marked sinus bradycardia with 1st degree AV block Abnormal ECG Compared to ECG 07/17/2023 11:40:47 First degree AV block now present T-wave abnormality no longer present Possible ischemia no longer present Electronically Signed On 09-30-23 17:03:45 CDT by Jorge L Loyd
--- NOTE | 2023-09-30 17:14 | RAD REPORT ---
EXAM DESCRIPTION: CT - C Spine Wo Con - 09/30/2023 3:22 pm CLINICAL HISTORY: Left hand weakness COMPARISON: None TECHNIQUE: Computed axial tomography of the cervical spine were obtained with sagittal and coronal r econstruction images generated and reviewed. All CT scans are performed using dose optimization technique as appropriate and may include automated exposure control or mA/KV adjustment according to patient size. FINDINGS: A cervical fracture is not seen. No dislocation. Small central disc herniation C4-5 Left posterior-lateral disc osteophyte complex C5-6 results in moderate narrowing left neural foramin a. IMPRESSION: A cervical fracture is not seen. Small central disc herniation C4-5 Left posterior-lateral disc osteophyte complex C5-6 results in moderate left foraminal stenosis If the patient continues have symptoms to suggest spinal cord/spinal canal/neural foraminal pathology then MRI would be recommended.
--- NOTE | 2023-09-30 20:58 | CON ---
Date of Consultation: 09/30/2023 Reason For Consultation: Elevated troponin. History Of Present Illness: 77-year-old, history of hypertension, dyslipidemia, obstructive sleep ap ginger, diabetes, Parkinson, chronic kidney disease, presented with weakness on the left side and denies having any chest pain or shortness of breath. The troponin was borderline elevated. Hence, I was c onsulted. I saw him by bedside. Denies having any chest pain or shortness of breath. No other comp laints. Past Medical History: As outlined above in the HPI. Medications: Refer to reconciliation sheet for detailed list. Allergies: NO KNOWN DRUG ALLERGIES. Family History: No premature coronary artery disease or cancer. Social History: He does not smoke or drink. Does not use any drugs. Review of Systems: All systems were reviewed and they were negative except as mentioned in HPI. Physical Examination: Vital Signs: Reviewed. Head and Neck: Pupils are equal, reactive to light. Intact eye movements. No JVD. No cervical lym phadenopathy. Neck is supple. Thyroid is not enlarged. Lungs: Clear to auscultation bilaterally. No rhonchi, wheezing, or crackles. No accessory muscle u se. Heart: Irregular. No extra sounds. Abdomen: Soft, nontender. Bowel sounds positive. No organomegaly. No masses or hernia. No rigidi ty or rebound. Extremities: No edema, clubbing, or cyanosis. Intact pulses. Skin: No rash. No nodule. Neurologic: Alert, awake, oriented x3. No acute focal deficits appreciated. Investigations: BUN 76, creatinine 3.9. Troponin is 83 and then 70, and hemoglobin is 10. Assessment And Recommendations: 1.Elevated troponin, borderline. Patient does not have any chest pain. This is demand and patient follows up with a machine washer in the outpatient arena. I asked him to follow up with his cardiologi st postdischarge to obtain a stress test. 2.Dyslipidemia. Continue Lipitor 40 mg q.h.s. 3.Hypertension. Blood pressure is extremely elevated. Check renal artery Doppler, rule out renal a rtery stenosis, and also check him for sleep apnea. If not treated, it needs treatment to get that b lood pressure under control. 4.Left-sided weakness, likely transient ischemic attack versus stroke and being followed by Neurolog y. /MODL Voice ID: [id number] Report ID: [id number]
[2023-09-30] MEDS: clonazePAM 0.5 MG TAB PO SCH (21:00)
[2023-09-30] MEDS: PREGABALIN 50 MG CAP PO SCH (21:55)
[2023-09-30] MEDS: ATORVASTATIN 80 MG TAB PO SCH (21:55)
[2023-09-30] MEDS: PRAZOSIN HCL 1 MG CAP PO SCH (22:02)
[2023-10-01] MEDS: PANTOPRAZOLE 40MG TABLET PO SCH (05:59)
[2023-10-01 06:01] LABS: Hematocrit 29.1 % (39.6-49.0); Hemoglobin 9.5 g/dL (13.6-17.9); MCH 25.5 pg (27.0-35.0); MCHC 32.6 g/dL (32.0-36.0); MCV 78.2 fL (80-100); MPV 11.5 fL (7.6-11.3); Platelets 105 thou/uL (152-406); RBC Red Blood Cell Count 3.72 M/uL (4.33-5.43); Red Cell Distribution Width 15.9 % (12.1-15.2)
[2023-10-01 06:23] LABS: Anion Gap 8.8 mEq/L (5.0-15.0); Potassium 3.8 mEq/L (3.5-5.1)
--- NOTE | 2023-10-01 06:53 | ECHO ---
HEIGHT: 6 ft 3 in WEIGHT: 310 lb 0 oz DATE OF STUDY: 09/30/[address]: Aide Bentley NP 2-DIMENSIONAL: YES M.MODE: YES DOPPLER: YES COLOR FLOW: YES TDS: NO PORTABLE: YES DEFINITY: NO BUBBLE STUDY: NO DIAGNOSIS: STROKE CARDIAC HISTORY: CATHERIZATION: SURGERY: PROSTHETIC VALVE: PACEMAKER: MEASUREMENTS (cm) DIASTOLIC (NORMALS) SYSTOLIC (NORMALS) IVSd 1.1 (0.6-1.2) LA Diam 3.9 (1.9-4.0) LVEF 60-65% LVIDd 5.9 (3.5-5.7) LVIDs 3.2 (2.0-3.5) %FS 46% LVPWd 1.3 (0.6-1.2) Ao Diam 3.7 (2.0-3.7) 2 DIMENSIONAL ASSESSMENT: RIGHT ATRIUM: NORMAL LEFT ATRIUM: NORMAL RIGHT VENTRICLE: NORMAL LEFT VENTRICLE: NORMAL TRICUSPID VALVE: NORMAL MITRAL VALVE: MILD MITRAL REGURGITATION PULMONIC VALVE: NORMAL AORTIC VALVE: NORMAL PERICARDIAL EFFUSION: NONE AORTIC ROOT: NORMAL LEFT VENTRICULAR WALL MOTION: NORMAL DOPPLER/COLOR FLOW: SEE BELOW COMMENTS: 1. NORMAL LEFT VENTRICULAR EJECTION FRACTION 60-65%. 2. NORMAL WALL MOTION. 3. MILD CONCENTRIC LEFT VENTRICULAR HYPERTROPHY. 4. MILD MITRAL REGURGITATION. TECHNOLOGIST: BRIDGETTE GENTILE
--- NOTE | 2023-10-01 07:54 | RAD REPORT ---
EXAM DESCRIPTION: US - Abdomen Pelvis Scan US - 10/01/2023 5:24 am CLINICAL HISTORY: High blood pressure juarez ckd 4 COMPARISON: No comparisons FINDINGS: The exam was limited by patient body habitus. Both kidneys appear mildly echogenic. The right kidney measures 10.4 x 5.1 x 5.0 cm. The left kidney measures 12.6 x 6.3 x 4.8 cm. No hydronephrosis. Aortic velocity: 145 cm/second Right proximal renal artery: 62 cm/second Right mid renal artery: 77 cm/second Right distal renal artery: 61 cm/second Right renal artery / aorta ratio: 0.5 Left proximal renal artery: 63 cm/second Left mid renal artery: 90 cm/second Left distal renal artery: 77 cm/second Left renal artery/aorta ratio: 0.6 Normal waveforms demonstrated within the bilateral renal arteries. IMPRESSION: No evidence of hemodynamically significant stenosis within the bilateral renal arteries. Mildly echogenic kidneys bilaterally suggests underlying medical renal disease. Limited study due to patient body habitus.
--- NOTE | 2023-10-01 07:58 | CON ---
Date of Consultation: 09/21/2023 Reason For Consultation: The patient came to the hospital because of altered mental status and workup was initiated to rule out CVA. History Of Present Illness: The patient is a 77-year-old man with past medical history of hypertensive heart and kidney disease, diabetic kidney disease, Parkinson disease, hydrocephalus, right ventricular shunt in 2022, restless legs, anemia, and gout. He presented to the emergency room because of generalized weakness, confusion, and left arm tingling and decreased left hand mobility. 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 Heart rate in the emergency room was ranging from [address] scan of the head reports no hydrocephalus, no evidence of acute intracranial process. Nephrology consultation is requested for advanced chronic kidney disease, prerenal azotemia, acute kidney injury, cardiorenal syndrome. The patient has fluid overload. He was taking Bumex. He has uncontrolled hypertension, systolic blood pressure is elevated despite multiple blood pressure medications. Laboratory Data: Laboratory tests showed BUN of 87, creatinine of 4.37, estimated GFR 14, blood glucose 126, potassium of 3.2. Chest x-ray showed mild interstitial prominence, moderate cardiomegaly. No pneumothorax. No pleural effusion. CT scan of the head without contrast reports no hydrocephalus. CT scan of the brain, no evidence of large vessel occlusion or flow-limiting stenoses. Medications: The patient is on multiple medications. Previously, he was taking a nonsteroidal anti-inflammatory medications and it was stopped. 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 Family History: No kidney disease in the family. Social History: Never smoker. Denies alcohol. Denies drugs. Review of Systems: General: Denies fever, chills. Eyes: Denies vision changes. Ears, Nose, Mouth and Throat: Denies sore throat, earaches. Respiratory: Denies PND, orthopnea. Cardiovascular: Denies syncope. GI: Denies nausea, vomiting. : Denies dysuria, hematuria. Musculoskeletal: Left arm tingling, weakness, and left hand decreased mobility. Physical Examination: General: The patient is awake, alert, follows commands. Oriented x3. Neck: Supple. No JVD. No bruits. Respiratory: Clear to auscultation bilaterally. Normal air movement. Cardiovascular: Normal pulses. Irregularly irregular bradycardia. Gastrointestinal: Normal bowel sounds. Musculoskeletal: No clubbing, no cyanosis. Neurological: Normal speech. Laboratory Data: Sodium 137, potassium of 3.2, BUN 87, creatinine 4.31, glucose 126. Impression And Plan: 1. Cerebrovascular accident, workup was initiated. The patient has significant history of hydrocephalus status post ventricular shunt. Continue further workup per Primary team and Neurology. 2. The patient is to have SANDY for evaluation. TSH was ordered to rule out hypothyroidism. The patient was found to have non-ST elevation myocardial infarction. Troponin was 59.2. There was no obvious ST segment changes and the patient needs to have Cardiology consultation. The patient is on aspirin, nitroglycerin, and morphine. Avoid nonsteroidal anti-inflammatory medication. 3. Hypokalemia, chronic kidney disease. Nephrology was consulted for prerenal azotemia, cardiorenal syndrome, with high BUN and creatinine ratio. The patient is on mild hydration with normal saline at 50 cc per hour. We will need to check renal ultrasound to assess for renal artery stenosis and to rule out obstructive uropathy. Check urinalysis for acute urinary sediment. 4. Hypertension. Continue blood pressure medication. Increase blood pressure medications due to the fact that blood pressure is severely elevated. 5. Hypokalemia secondary to diuretic. Monitor renal panel, magnesium, and phosphorus. Check am cortisol levels and check plasma aldosterone renin ratio, plasma aldosterone concentration. ODESSA/NII Voice ID: [id number] Report ID: [id number] RITU
[2023-10-01] MEDS: POTASSIUM CL SA 10 MEQ TAB PO ONE (08:11)
[2023-10-01] MEDS: HYDRALAZINE HCL 25 MG TABLET PO SCH (09:00)
--- NOTE | 2023-10-01 14:21 | P.PN ---
Date of Service: 10/01/23 Subjective: Reports mild improvement in strength of left upper extremity/hand/wrist No other acute events overnight Working well with PT, able to ambulate with a walker ROS: 10 point ROS as noted above, otherwise negative Physical exam GEN: Alert, oriented, NAD HEENT: Normal conjunctiva, sclera anicteric CV: Regular rate and rhythm, no edema, fistula in place right upper extremity Pulm: Nonlabored respirations on room air ABD: Soft, nontender, nondistended MSK: No joint tenderness, reports some pain to the lateral aspect of the left elbow Integumentary: No rashes Neuro: Normal speech, normal affect, left wrist drop, weakness affecting primarily left wrist/left hand, sensation intact, difficulty with extension of left wrist, weakness of fingers as well Vitals reviewed Assessment and plan Left hand/wrist weakness-suspected peripheral neuropathy CVA RULED OUT History of hydrocephalus status post ventricular shunt (May 2022) -CT Head without contrast reports no hydrocephalus present, No evidence of an acute intracranial process. Stable ventricular caliber with the right ventriculostomy catheter in place. -CT brain angio reports "No evidence of large vessel occlusion or flow-limiting stenosis." -CT neck angio reports "No evidence of large vessel occlusion or flow-limiting stenosis." - Consulted Neurology - recommendations appreciated -Home medications resumed, resuming reduced dose carvedilol given bradycardia -Passed bedside swallow test -MRI brain negative for CVA -CT C-Spine shows left posterior-lateral disc osteophyte complex C5-6 results in moderate left foraminal stenosis -Weakness limited to distal left upper extremity, suspect this is related to peripheral neuropathy -Neurology to see patient and evaluate -Having some slow improvement in the weakness to the left hand/wrist NSTEMI-suspect demand ischemia/type II Prolonged QT/QTc - EKG: No obvious ST segment changes - troponin peaked around 80, now downtrending - Ordered transthoracic echocardiogram - Consult Cardiology -believe likely demand ischemia recommend outpatient stress - Cardiology also recommended renal artery ultrasound given marked hypertension- ultrasound negative for renal artery stenosis - S/P aspirin 162 mg PO - Start daily baby aspirin and statin -continuous telemetry CKD 5/ESRD Hypokalemia -Right arm AV fistula present-has not used yet -Patient not yet on hemodialysis -Nephrology following, no current indications for HD -Monitor renal function daily Diabetes mellitusIDDM -Accu-Chek with sliding scale insulin History of anemia Thrombocytopenia -monitor H/H daily -H/H 11.1/34.1, platelets 111, on heparin for DVT -transfuse PRN History of HTN/HLD History of Hypotension History of MARYSOL History of Parkinson's History of Restless leg syndrome History of Gout -Home medications restarted DVT PPx heparin Full code LOS 2 days Time Spent Managing Pts Care (In Minutes): 35
--- NOTE | 2023-10-01 15:10 | PN ---
Date of Progress Note: 10/01/2023 Subjective: Patient was admitted to the hospital with right-sided arm weakness. Patient had found to have cervical herniated disk. Physical Examination: Vital Signs: Blood pressure 162/80, pulse of 80, afebrile. Chest: Clear to auscultation. Heart: S1, S2 regular. Abdomen: Soft, nontender. Extremities: Weakness on the left arm; tremor, bilateral, new. Neuro: Weakness on the left arm, tremor bilaterally. Laboratory Data: Hemoglobin 9.7. Sodium 139, potassium 3.8, bicarb 26, BUN 86, creatinine 4.7, calcium 9.3. Medications: Current medications the patient is on include: 1. Atorvastatin. 2. Carvedilol 6.25. 3. Clonidine patch. 4. Hydralazine 100. 5. Nifedipine 90 b.i.d. 6. Carbidopa. 7. Lyrica. Assessment And Plan: 1. Acute kidney injury on advanced chronic kidney disease. I do not see any uremic symptoms. No hyperkalemia. No significant acidosis. No uremic symptoms. I do not see the need to initiate any renal replacement therapy. We will continue to monitor the acute exacerbation, mostly secondary to prerenal, secondary to GI prep. We will continue gentle hydration with oral. I am going to go ahead and decrease the Lasix to 0.5 and we will follow up the patient. 2. Hypertension, not controlled. I am going to go ahead and increase his clonidine to 0.3. Okay from the Renal standpoint to resume low dose of beta- becka and we will follow up with primary. We will keep holding on any CRISTIANO inhibitor or ARB. 3. Arm weakness, herniated disk. Will follow up with Neurology. 4. Hypokalemia. We will hold on any supplement. 5. Edema, mostly secondary to renal failure. Currently, patient on the dry side. Decrease Bumex. Time spent examining the patient [id number] reviewing data lab and the radiology placing orders discussing the case with the patient discussing the case with the merchandise flow team leader including hospitalist and nursing staff more than 55 minutes MAURI Voice ID: [id number] Report ID: [id number] [facility]ITALJu[facility]
[2023-10-01] MEDS: carvediloL 6.25 MG TAB PO SCH (20:57)
[2023-10-01] MEDS: HEPARIN 5000 UNIT/ML 1 ML VIAL SQ SCH (20:58)
[2023-10-02 07:30] LABS: Hematocrit 27.2 % (39.6-49.0); Hemoglobin 9.1 g/dL (13.6-17.9); MCH 25.9 pg (27.0-35.0); MCHC 33.3 g/dL (32.0-36.0); MCV 77.7 fL (80-100); MPV 11.5 fL (7.6-11.3); Platelets 113 thou/uL (152-406); Red Cell Distribution Width 15.8 % (12.1-15.2)
[2023-10-02 08:06] LABS: Anion Gap 10.6 mEq/L (5.0-15.0); Potassium 3.6 mEq/L (3.5-5.1)
[2023-10-02] MEDS: BUMETANIDE 1 MG TABLET PO SCH (09:04)
[2023-10-02] MEDS: POTASSIUM 25 MEQ EFFERV TAB PO ONE (10:03)
[2023-10-02] MEDS: SPIRONOLACTONE 25 MG TABLET PO SCH (10:03)
--- NOTE | 2023-10-02 11:49 | P.PN ---
Date of Service: 10/02/23 Subjective: Reports mild improvement in strength of left upper extremity/hand/wrist No other acute events overnight Working well with PT, able to ambulate with a walker renal function worsening ROS: 10 point ROS as noted above, otherwise negative Physical exam GEN: Alert, oriented, NAD HEENT: Normal conjunctiva, sclera anicteric CV: Regular rate and rhythm, no edema, fistula in place right upper extremity Pulm: Nonlabored respirations on room air ABD: Soft, nontender, nondistended MSK: No joint tenderness, reports some pain to the lateral aspect of the left elbow Integumentary: No rashes Neuro: Normal speech, normal affect, left wrist drop, weakness affecting primarily left wrist/left hand, sensation intact, difficulty with extension of left wrist, weakness of fingers as well Vitals reviewed Assessment and plan Left hand/wrist weakness-suspected peripheral neuropathy CVA RULED OUT History of hydrocephalus status post ventricular shunt (May 2022) -CT Head without contrast reports no hydrocephalus present, No evidence of an acute intracranial process. Stable ventricular caliber with the right ventriculostomy catheter in place. -CT brain angio reports "No evidence of large vessel occlusion or flow-limiting stenosis." -CT neck angio reports "No evidence of large vessel occlusion or flow-limiting stenosis." - Consulted Neurology - recommendations appreciated -Home medications resumed, resuming reduced dose carvedilol given bradycardia -MRI brain negative for CVA -CT C-Spine shows left posterior-lateral disc osteophyte complex C5-6 results in moderate left foraminal stenosis -Weakness limited to distal left upper extremity, suspect this is related to peripheral neuropathy -Neurology to see patient and evaluate -Having some slow improvement in the weakness to the left hand/wrist -Arranging for outpatient PT NSTEMI-suspect demand ischemia/type II Prolonged QT/QTc - EKG: No obvious ST segment changes - troponin peaked around 80, now downtrending - Ordered transthoracic echocardiogram - Consult Cardiology -believe likely demand ischemia recommend outpatient stress - Cardiology also recommended renal artery ultrasound given marked hypertension- ultrasound negative for renal artery stenosis - S/P aspirin 162 mg PO - Start daily baby aspirin and statin - continuous telemetry CKD 5/ESRD Hypokalemia -Worsening renal function the last two days -Recheck in AM -May require HD inpatient -Right arm AV fistula present-has not used yet -Patient not yet on hemodialysis -Nephrology following, no current indications for HD -Monitor renal function daily Diabetes mellitusIDDM -Accu-Chek with sliding scale insulin History of anemia Thrombocytopenia -monitor H/H daily -H/H 11.1/34.1, platelets 111, on heparin for DVT -transfuse PRN History of HTN/HLD History of Hypotension History of MARYSOL History of Parkinson's History of Restless leg syndrome History of Gout -Home medications restarted DVT PPx heparin Full code LOS 1-2 days Time Spent Managing Pts Care (In Minutes): 35
--- NOTE | 2023-10-02 15:21 | PN ---
Date of Progress Note: 10/02/2023 Subjective: The patient was admitted to the hospital with weakness on the arm. Neurology following. The patient was found to have elevation in BUN and creatinine. The patient had progression of kidney disease. Physical Examination: Vital Signs: Blood pressure 188/53, pulse of 61, afebrile. Chest: Clear to auscultation. Heart: S1, S2. Systolic murmur. Abdomen: Soft, nontender. Extremities: Right brachiocephalic AV fistula, good thrill and good bruit. Neurologic: Alert, weakness on the right arm, note resting tremor. Laboratory Data: Hemoglobin 9.1, sodium 138, potassium 3.6, bicarb 25, BUN 96, creatinine 5.3, calcium 9.1. Current Medications: The patient on include: 1. Atorvastatin. 2. Clonidine. 3. Carvedilol 6.25. 4. Hydralazine 100 t.i.d. 5. Nifedipine. 6. Prazosin. 7. Lyrica. 8. Insulin. Assessment And Plan: 1. Acute kidney injury on chronic kidney disease, slow progression. No uremic symptoms. No hyperkalemia. The kidney function continue to be on the low side with elevation in the BUN. I had long discussion with the family that the patient may need to be initiated on renal replacement therapy. We will follow up chemistry tomorrow. If BUN continue to rise, we will go ahead and initiate. 2. Hypertension, control not optimal. We will start the patient on spironolactone. The patient was started on carvedilol yesterday. Continue hydralazine. Continue current dose of clonidine. 3. Right arm weakness. Follow up with Neurology. 4. Diabetes as by primary. Time spent examining the patient [id number] reviewing data lab and the radiology placing orders discussing the case with the patient discussing the case with the truck driver teamster including hospitalist and nursing staff more than 55 minutes MAURI Voice ID: [id number] Report ID: [id number] [facility]
[2023-10-02 17:47] LABS: Homocysteine 25.6 umol/L (<11.4)
[2023-10-02 22:11] LABS: Abnormal Protein Band 1 REPORT; Albumin, (SPE) 4.1 g/dL (3.8-4.8); Alpha-1-Globulins 0.3 g/dL (0.2-0.3); Alpha-2-Globulins 0.9 g/dL (0.5-0.9); Beta 1 Globulin 0.4 g/dL (0.4-0.6); Gamma Globulins 1.3 g/dL (0.8-1.7); INTERPRETATION REPORT; Total Protein 7.4 g/dL (6.1-8.1)
[2023-10-03 07:19] LABS: Hematocrit 28.4 % (39.6-49.0); Hemoglobin 9.5 g/dL (13.6-17.9); MCH 25.7 pg (27.0-35.0); MCHC 33.6 g/dL (32.0-36.0); MCV 76.5 fL (80-100); MPV 10.2 fL (7.6-11.3); Platelets 107 thou/uL (152-406); RBC Red Blood Cell Count 3.71 M/uL (4.33-5.43)
[2023-10-03] MEDS: ONDANSETRON 4 MG/2 ML VIAL IV ONE (09:45)
--- NOTE | 2023-10-03 13:29 | P.PN ---
Date of Service: 10/03/23 Subjective: Reports mild improvement in strength of left upper extremity/hand/wrist No other acute events overnight Working well with PT, able to ambulate with a walker Nephrology recommending inpatient HD ROS: 10 point ROS as noted above, otherwise negative Physical exam GEN: Alert, oriented, NAD HEENT: Normal conjunctiva, sclera anicteric CV: Regular rate and rhythm, no edema, fistula in place right upper extremity Pulm: Nonlabored respirations on room air ABD: Soft, nontender, nondistended MSK: No joint tenderness, reports some pain to the lateral aspect of the left elbow Integumentary: No rashes Neuro: Normal speech, normal affect, left wrist drop, weakness affecting primarily left wrist/left hand, sensation intact, difficulty with extension of left wrist, weakness of fingers as well Vitals reviewed Assessment and plan Left hand/wrist weakness-suspected peripheral neuropathy CVA RULED OUT History of hydrocephalus status post ventricular shunt (May 2022) -CT Head without contrast reports no hydrocephalus present, No evidence of an acute intracranial process. Stable ventricular caliber with the right ventriculostomy catheter in place. -CT brain angio reports "No evidence of large vessel occlusion or flow-limiting stenosis." -CT neck angio reports "No evidence of large vessel occlusion or flow-limiting stenosis." - Consulted Neurology - recommendations appreciated -Home medications resumed, resuming reduced dose carvedilol given bradycardia -MRI brain negative for CVA -CT C-Spine shows left posterior-lateral disc osteophyte complex C5-6 results in moderate left foraminal stenosis -Weakness limited to distal left upper extremity, suspect this is related to pe ripheral neuropathy -Neurology to see patient and evaluate -Having some slow improvement in the weakness to the left hand/wrist -Arranging for outpatient PT NSTEMI-suspect demand ischemia/type II Prolonged QT/QTc - EKG: No obvious ST segment changes - troponin peaked around 80, now downtrending - Ordered transthoracic echocardiogram - Consult Cardiology -believe likely demand ischemia recommend outpatient stress - Cardiology also recommended renal artery ultrasound given marked hypertension- ultrasound negative for renal artery stenosis - S/P aspirin 162 mg PO - Start daily baby aspirin and statin - continuous telemetry CKD 5/ESRD Hypokalemia Persistent Hypertension -Given persistent/resistant hypertension, elevated renal function nephrology plans on initiating inpatient HD -Will also need outpatient HD, case management consulted -Right arm AV fistula present and ready for use per nephrology -Monitor renal function daily Diabetes mellitusIDDM -Accu-Chek with sliding scale insulin History of anemia Thrombocytopenia -monitor H/H daily -H/H 11.1/34.1, platelets 111, on heparin for DVT -transfuse PRN History of HTN/HLD History of MARYSOL History of Parkinson's History of Restless leg syndrome History of Gout -Home medications restarted DVT PPX with heparin due to ESRD and concern for adverse reactions with lovenox Full code LOS 1-2 days Time Spent Managing Pts Care (In Minutes): 35
--- NOTE | 2023-10-03 14:10 | PN ---
Date of Progress Note: 10/03/2023 Subjective: Patient was admitted to the hospital with weakness on the right arm. Has radiculopathy. The patient's blood pressure being elevated. The patient's BUN continued to rise. Objective: Vital Signs: Blood pressure 260/48, pulse of 79, afebrile. Chest: Faint rales, bilateral. Heart: S1, S2. Regular. Abdomen: Soft, nontender. Extremity: +1 edema. Neurologic: Alert. Weakness on the right upper arm. Laboratory Data: Hemoglobin 9.5, sodium 140, potassium 4, bicarb 26, BUN 91, creatinine 5.1, calcium 9.3. Current Medications: The patient on, included Tylenol, carvedilol 6.25, hydralazine 100, nifedipine, spironolactone, carbidopa, Lyrica, pantoprazole, allopurinol. Assessment And Plan: 1. Chronic kidney disease, advanced, stage 5, progression to end-stage renal disease. We will initiate dialysis for the patient. We will challenge the patient and we will follow up. 2. Hypertension, not controlled. I am going to resume Bumex and I am going to increase carvedilol. We will challenge the patient on dialysis. We will follow up response. 3. Anemia of chronic kidney disease. We will hold on MIKAELA with the current blood pressure. 4. Radiculopathy. Follow up with Neurology and Primary. Time spent examining the patient [id number] reviewing data lab and the radiology placing orders discussing the case with the patient discussing the case with the steam powerplant supervisor including hospitalist and nursing staff more than 55 minutes MAURI Voice ID: [id number] Report ID: [id number] [facility]
[2023-10-03] MEDS: carvediloL 12.5 MG TAB PO SCH (17:32)
[2023-10-03 17:44] LABS: Hepatitis B Core IgM Nonreactive (Nonreactive); Hepatitis B Surface Ab - Quant 3.45 mIU/mL (<8.0); Hepatitis B surface AG Interp. Nonreactive (Nonreactive)
[2023-10-03 17:45] LABS: HBsAG Nonreactive Report Report
[2023-10-04 07:20] LABS: Anti-Thrombin III Activity 107 % normal (80-135)
--- NOTE | 2023-10-04 07:36 | RAD REPORT ---
EXAM DESCRIPTION: RAD - Chest Single View - 10/04/2023 6:11 am CLINICAL HISTORY: TB rule out, Setting up dialysis outpatiet Chest pain. COMPARISON: Chest Single View dated 09/29/2023; Chest Pa And Lat (2 Views) dated 07/09/2023; Chest Pa A nd Lat (2 Views) dated 03/15/2022; Chest Pa And Lat (2 Views) dated 01/24/2021 FINDINGS: Portable technique limits examination quality. The lungs are grossly clear. The heart is moderately enlarged in size. No displaced fractures.No find ing concerning for tuberculosis. IMPRESSION: No acute intrathoracic process suspected.
[2023-10-04 08:40] LABS: Albumin 3.7 g/dL (3.4-5.0); Phosphorus 2.9 mg/dL (2.5-4.9)
[2023-10-04] MEDS: BUMETANIDE 1 MG/4 ML VIAL IV SCH (08:58)
[2023-10-04] MEDS: lisinopriL 20 MG TAB PO SCH (09:00)
[2023-10-04 09:24] LABS: Hematocrit 31.5 % (39.6-49.0); Hemoglobin 10.3 g/dL (13.6-17.9); MCH 25.4 pg (27.0-35.0); MCHC 32.7 g/dL (32.0-36.0); MCV 77.6 fL (80-100); MPV 10.2 fL (7.6-11.3); Platelets 116 thou/uL (152-406); RBC Red Blood Cell Count 4.05 M/uL (4.33-5.43); Red Cell Distribution Width 15.9 % (12.1-15.2)
--- NOTE | 2023-10-04 12:35 | P.PN ---
Date of Service: 10/04/23 Subjective: Reports mild improvement in strength of left upper extremity/hand/wrist No other acute events overnight Working well with PT, able to ambulate with a walker Started on HD 10/02 BP still elevated ROS: 10 point ROS as noted above, otherwise negative Physical exam GEN: Alert, oriented, NAD HEENT: Normal conjunctiva, sclera anicteric CV: Regular rate and rhythm, no edema, fistula in place right upper extremity Pulm: Nonlabored respirations on room air ABD: Soft, nontender, nondistended MSK: No joint tenderness, reports some pain to the lateral aspect of the left elbow Integumentary: No rashes Neuro: Normal speech, normal affect, left wrist drop, weakness affecting primarily left wrist/left hand, sensation intact, difficulty with extension of left wrist, weakness of fingers as well Vitals reviewed Assessment and plan Left hand/wrist weakness-suspected peripheral neuropathy CVA RULED OUT History of hydrocephalus status post ventricular shunt (May 2022) -CT Head without contrast reports no hydrocephalus present, No evidence of an acute intracranial process. Stable ventricular caliber with the right ventriculostomy catheter in place. -CT brain angio reports "No evidence of large vessel occlusion or flow-limiting stenosis." -CT neck angio reports "No evidence of large vessel occlusion or flow-limiting stenosis." - Consulted Neurology - recommendations appreciated -Home medications resumed, resuming reduced dose carvedilol given bradycardia -MRI brain negative for CVA -CT C-Spine shows left posterior-lateral disc osteophyte complex C5-6 results in moderate left foraminal stenosis -Weakness limited to distal left upper extremity, suspect this is related to per ipheral neuropathy -Neurology to see patient and evaluate -Having some slow improvement in the weakness to the left hand/wrist -Arranging for outpatient PT NSTEMI-suspect demand ischemia/type II Prolonged QT/QTc - EKG: No obvious ST segment changes - troponin peaked around 80, now downtrending - Ordered transthoracic echocardiogram - Consult Cardiology -believe likely demand ischemia recommend outpatient stress - Cardiology also recommended renal artery ultrasound given marked hypertension- ultrasound negative for renal artery stenosis - S/P aspirin 162 mg PO - Start daily baby aspirin and statin - continuous telemetry ESRD Hypokalemia Persistent Hypertension -Given persistent/resistant hypertension, elevated renal function nephrology p lans on initiating inpatient HD -Will also need outpatient HD, case management consulted -Right arm AV fistula present and ready for use per nephrology -Monitor renal function daily -Blood pressure still markedly elevated despite initiation of HD, titration of medications -Will need further medication titration prior to DC -Also awaiting outpatient chair time/availability Diabetes mellitusIDDM -Accu-Chek with sliding scale insulin History of anemia Thrombocytopenia -monitor H/H daily -heparin for DVT -transfuse PRN History of HTN/HLD History of MARYSOL History of Parkinson's History of Restless leg syndrome History of Gout -Home medications restarted DVT PPX with heparin due to ESRD and concern for adverse reactions with lovenox Full code LOS 1-2 days Time Spent Managing Pts Care (In Minutes): 35
[2023-10-04] MEDS: DOXAZOSIN 2 MG TAB PO SCH (22:29)
--- NOTE | 2023-10-05 00:07 | PN ---
Date of Progress Note: 10/04/2023 Chief Complaint: Chronic kidney disease, advanced stage 5, accelerated by acute kidney injury. Subjective: The patient was started on dialysis. The patient has fluid overload and Bumex was resum ed as well. The patient is on fluid restriction. The patient has uncontrolled hypertension and is t aking multiple blood pressure medications. He is complaining of right arm pain and he was diagnosed with radiculopathy is on Lyrica and pain management. Review of Systems: Pain is controlled. Physical Examination: Respiratory: Clear to auscultation bilaterally. Heart: S1, S2. Abdomen: Soft. Extremities: Edema in both legs. Impression And Plan: 1.Advanced chronic kidney disease. Acute kidney injury. Patient is started on hemodialysis and sunday n is to continue Bumex for volume control and advance ultrafiltration with dialysis. 2.Hypertension, uncontrolled. Medication changes were made. The patient will continue Bumex to con trol fluid overload. Challenge target weight with dialysis to prevent volume overload. 3.Diabetic neuropathy. Pain management per primary team. 4.Anemia of chronic disease. Hold MIKAELA in view of elevated blood pressure. EB/MODL Voice ID: [id number] Report ID: [id number]
[2023-10-05 02:37] VITALS: O2SAT 97
[2023-10-05 05:27] LABS: Hemoglobin 9.1 g/dL (13.6-17.9); MCH 25.9 pg (27.0-35.0); MCHC 33.7 g/dL (32.0-36.0); MPV 10.5 fL (7.6-11.3); Platelets 118 thou/uL (152-406); RBC Red Blood Cell Count 3.51 M/uL (4.33-5.43); Red Cell Distribution Width 15.5 % (12.1-15.2)
[2023-10-05 05:37] VITALS: BMI 38.3
[2023-10-05 05:59] LABS: Anion Gap 6.7 mEq/L (5.0-15.0); Potassium 3.7 mEq/L (3.5-5.1)
[2023-10-05 10:47] LABS: Protein C Antigen 108 % normal (70-140)
--- NOTE | 2023-10-05 13:18 | PN ---
Date of Progress Note: 10/05/2023 Subjective: The patient was admitted to the hospital with right arm weakness. The patient was initiated on dialysis. The patient had high blood pressure. The patient was dialyzed, responded very well. The patient was seen on dialysis today. Physical Examination: Vital Signs: Blood pressure 172/70, pulse of 88. Chest: Clear to auscultation. Heart: S1, S2. Systolic murmur. Abdomen: Soft, nontender. Extremities: Plus edema. Neuro: Alert. No focality. Laboratory Data: Hemoglobin 9.1. Sodium 137, potassium 3.7, bicarb 31, BUN 40, creatinine 3.4, calcium 9.3. Current Medications: The patient is on include: 1. Atorvastatin. 2. Carvedilol 12.5. 3. Clonidine. 4. Cardura 1 mg b.i.d. 5. Isosorbide. 6. Lisinopril 40. 7. Spironolactone 25 daily. 8. Lyrica. Assessment And Plan: 1. End-stage renal disease, overvolume. We increased his goal to 2 L. We will continue to challenge the patient. 2. If blood pressure is stable post dialysis, patient is okay from the Renal standpoint for discharge planning. 3. Hypertension, better controlled. Currently started on Cardura and lisinopril. I am going to increase spironolactone. Again, if the blood pressure been stable, patient is okay to be discharged. 4. Right arm weakness secondary to radiculopathy. Follow up with primary. 5. Coronary artery disease, stable. Time spent examining the patient [id number] reviewing data lab and the radiology placing orders discussing the case with the patient discussing the case with the help desk team leader including hospitalist and nursing staff more than 55 minutes MAURI Voice ID: [id number] Report ID: [id number] [facility]
--- NOTE | 2023-10-05 16:10 | P.DS ---
Admission Date: 09/30/23 Discharge Date: 10/05/23 Disposition: ROUTINE DISCHARGE Discharge Condition: GOOD Reason for Admission: CVA rule out Consultations: Nephrology-Dr. Mccarthy Hospital Course: Patient was admitted to hospital on 09/28 with left upper extremity weakness, concern for possible CVA. CT head without contrast was negative for acute findings, CTA of the head and neck were negative for large vessel occlusion, he subsequently underwent MRI on 09/29 which was negative for acute finding/CVA. He does have stable ventriculomegaly with ventricular shunt in place unchanged from previous position. His left upper extremity weakness seem to be primarily distal affecting his left wrist and hand/fingers most. After further discussion it was determined the patient did suffer a assisted fall at home and possibly had a nerve/compression injury to the left arm. His left wrist/hand strength improved during the hospitalization. He has been ambulating well with physical therapy and a walker. Outpatient physical therapy has been set up. 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 He had persistent/resistant hypertension and was on multiple medications requiring titration, ultimately nephrology recommended initiating hemodialysis. Patient underwent HD x 2 during hospitalization, outpatient HD chair has been set up with [facility] in [place]. Given his persistent/resistant hypertension a renal artery ultrasound was obtained which was negative for any significant renal artery stenosis. His medications were adjusted/titrated and his blood pressure medication should be as follows: Clonidine 0.2 mg patch every 7-day Carvedilol 12.5 mg by mouth twice daily Doxazosin 1 mg by mouth twice daily Hydralazine 100 mg mouth 4 times daily Imdur 120 mg mouth daily Lisinopril 40 mg daily Nifedipine 90 mg by mouth twice daily Spironolactone 50 mg daily Bumex 1 mg mouth twice daily Please stop taking prazosin 2 mg at bedtime, this medication has been substituted for doxazosin. Please follow-up your primary care doctor in 1 to 2 weeks Continue with outpatient hemodialysis as scheduled Follow-up with nephrologyDr. Mccarthy Assessment and plan Left hand/wrist weakness-suspected peripheral neuropathy CVA RULED OUT History of hydrocephalus status post ventricular shunt (May 2022) NSTEMI-suspect demand ischemia/type II Prolonged QT/QTc ESRD Hypokalemia Severe resistant/persistent Hypertension Diabetes mellitusIDDM History of anemia Thrombocytopenia History of HTN/HLD History of MARYSOL History of Parkinson's History of Restless leg syndrome History of Gout Vital Signs/Physical Exam: Temp Pulse Resp BP Pulse Ox 98.2 F 84 18 237/76 H 97 10/05/23 08:00 10/05/23 08:40 10/05/23 08:00 10/05/23 08:40 10/05/23 08:00 General: Alert, In no apparent distress, Oriented x3 HEENT: Atraumatic, PERRLA Neck: Supple, JVD not distended Respiratory: Clear to auscultation bilaterally, Normal air movement Cardiovascular: Regular rate/rhythm, Normal S1 S2 Gastrointestinal: Normal bowel sounds, No tenderness Musculoskeletal: No tenderness Integumentary: No rashes Neurological: Normal speech, Normal tone, Normal affect, Abnormal strength (Left wrist 4/5, otherwise 5/5 strength) Other Physical/Emotional Findings: NIHSS 3 Laboratory Data at Discharge: WBC 5.10 thou/uL (4.3-10.9) 10/05/23 05:10 Hgb 9.1 g/dL (13.6-17.9) L D 10/05/23 05:10 Hct 27.0 % (39.6-49.0) L 10/05/23 05:10 Plt Count 118 thou/uL (152-406) L 10/05/23 05:10 PT 12.2 SECONDS (9.4-12.5) 09/29/23 10:32 INR 1.09 09/29/23 10:32 APTT 33.7 SECONDS (24.3-36.9) 09/29/23 10:32 Sodium 137 mEq/L (136-145) 10/05/23 05:10 Potassium 3.7 mEq/L (3.5-5.1) 10/05/23 05:10 BUN 40 mg/dL (7-18) H 10/05/23 05:10 Creatinine 3.45 mg/dL (0.70-1.30) H 10/05/23 05:10 Glucose 215 mg/dL (74-106) H 10/05/23 05:10 Phosphorus 2.9 mg/dL (2.5-4.9) 10/04/23 08:02 Magnesium 2.5 mg/dL (1.6-2.4) H 09/30/23 06:10 Total Bilirubin 0.5 mg/dL (0.2-1.0) 09/29/23 10:32 AST 15 U/L (15-37) 09/29/23 10:32 ALT 16 U/L (16-61) 09/29/23 10:32 Alkaline Phosphatase 57 U/L (45-117) 09/29/23 10:32 Triglycerides 134 mg/dL (<150) 09/30/23 06:10 Cholesterol 113 mg/dL (<200) 09/30/23 06:10 HDL Cholesterol 38 mg/dL (40-60) L 09/30/23 06:10 Cholesterol/HDL Ratio 2.97 09/30/23 06:10 Home Medications: Allopurinol 50 mg PO SEECOM 01/24/21 Aspirin [Aspirin EC 81 MG] 81 mg PO DAILY 01/24/21 Insulin Detemir [Levemir Flextouch] 30 unit SQ BEDTIME 01/24/21 Isosorbide Mononitrate [Isosorbide Mononitrate ER] 120 mg PO DAILY 01/24/21 Omeprazole Magnesium [Prilosec Otc] 20 mg PO DAILY 01/24/21 Pregabalin [Lyrica*] 50 mg PO BEDTIME 01/24/21 clonazePAM [Klonopin*] 0.5 mg PO BEDTIME 01/24/21 Cholecalciferol (Vitamin D3) [Vitamin D 5,000 IU Cap*] 5,000 unit PO DAILY 05/25/21 Hydralazine HCl 100 mg PO QID 05/25/21 Atorvastatin Calcium [Lipitor] 80 mg PO BEDTIME 03/15/22 Cinnamon Bark [Cinnamon] 2,000 mg PO NOON 03/15/22 Cyanocobalamin (Vitamin B-12) [Vitamin B-12] 1,000 mcg PO DAILY 03/15/22 Insulin Aspart [Insulin Aspart Flexpen] 30 unit SQ BEDTIME 03/15/22 NIFEdipine [Nifedipine ER] 1 tab PO BID 03/15/22 Vit A/Vit C/Vit E/Zinc/Copper [Eye Multivitamin Tablet] 2 each PO DAILY 03/15/22 Bumetanide [Bumex] 1 mg PO DAILY 09/29/23 Carbidopa/Levodopa [Carbidopa-Levodopa 25-250 Tab] 1 tab PO TID 09/29/23 Fexofenadine HCl [Judi Allergy] 60 mg PO DAILY 09/29/23 cloNIDine [Clonidine] 0.2 mg TD EVERY 7TH DAY 09/29/23 clonazePAM [Clonazepam] 0.5 mg PO BEDTIME 09/29/23 metOLazone [Zaroxolyn*] 2.5 mg PO SEECOM 09/29/23 Doxazosin [Cardura*] 1 mg PO BID #60 tab 10/05/23 Spironolactone 50 mg PO DAILY #30 tab 10/05/23 carvediloL [Carvedilol] 12.5 mg PO BID #60 tab 10/05/23 lisinopriL [Lisinopril] 40 mg PO DAILY #30 tab 10/05/23 New Medications: Doxazosin [Cardura*] 1 mg PO BID #60 tab carvediloL [Carvedilol] 12.5 mg PO BID #60 tab lisinopriL [Lisinopril] 40 mg PO DAILY #30 tab Spironolactone 50 mg PO DAILY #30 tab Physician Discharge Instructions: Patient was admitted to hospital on 09/28 with left upper extremity weakness, concern for possible CVA. CT head without contrast was negative for acute findings, CTA of the head and neck were negative for large vessel occlusion, he subsequently underwent MRI on 09/29 which was negative for acute finding/CVA. He does have stable ventriculomegaly with ventricular shunt in place unchanged from previous position. His left upper extremity weakness seem to be primarily distal affecting his left wrist and hand/fingers most. After further discussion it was determined the patient did suffer a assisted fall at home and possibly had a nerve/compression injury to the left arm. His left wrist/hand strength improved during the hospitalization. He has been ambulating well with physical therapy and a walker. Outpatient physical therapy has been set up. 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 He had persistent/resistant hypertension and was on multiple medications requiring titration, ultimately nephrology recommended initiating hemodialysis. Patient underwent HD x 2 during hospitalization, outpatient HD chair has been set up with [facility] in [place]. Given his persistent/resistant hypertension a renal artery ultrasound was obtained which was negative for any significant renal artery stenosis. His medications were adjusted/titrated and his blood pressure medication should be as follows: Clonidine 0.2 mg patch every 7-day Carvedilol 12.5 mg by mouth twice daily Doxazosin 1 mg by mouth twice daily Hydralazine 100 mg mouth 4 times daily Imdur 120 mg mouth daily Lisinopril 40 mg daily Nifedipine 90 mg by mouth twice daily Spironolactone 50 mg daily Bumex 1 mg mouth twice daily Please stop taking prazosin 2 mg at bedtime, this medication has been substituted for doxazosin. Please follow-up your primary care doctor in 1 to 2 weeks Continue with outpatient hemodialysis as scheduled Follow-up with nephrologyDr. Shari Diet: Renal Activity: Fall precautions Followup: Jorge Mccarthy MD [ACTIVE - CAN ADMIT] - 2-3 Days Cynthia Woodall MD [Primary Care Provider] - 1-2 Weeks Time spent managing pt's care (in minutes): 45
[2023-10-05 16:34] LABS: Anti-Cardiolipin IgG Antibody <2.0 GPL-U/mL (<20.0)
[2023-10-05 16:37] VITALS: BP 156/54; TEMP 98.6
[2023-10-06] MEDS ORDERED: SPIRONOLACTONE 25 MG TABLET PO SCH (09:00)
[2023-10-07 01:15] LABS: C-ANCA Anti-Proteinase 3 <1.0 AI (<1.0); P-ANCA Anti-Myeloperoxidase Ab <1.0 AI (<1.0)
[2023-10-08] MEDS ORDERED: CLONIDINE 0.3 MG/PATCH TD SCH (09:00)
[2023-10-08 15:40] LABS: PRA,LC/MS/MS 4.42 ng/mL/h (0.25-5.82)
[2023-10-09 09:54] LABS: Factor V (Leiden) Interp REPORT; Factor V (Leiden) Result NEGATIVE
[2023-10-09 12:11] LABS: PGA INTERPRETATION REPORT; Prothrombin Gene Analysis Test NEGATIVE
== END 2023-10-05 17:25 | disposition home or self-care (01) | DRG 73 ==
LOC: ER 09:30 → ERHOLD 14:39 → 4TH 15:21 → OBSVTOIN 09-30 13:43
PROVIDERS: ADMIT Internal Medicine; ATTEND Hospitalist
PROC: 5A1D70Z Performance of Urinary Filtration, Intermittent, Less than 6 Hours Per Day (ICD-10-PCS; principal; 2023-09-29)
PROC: 02HV33Z Insertion of Infusion Device into Superior Vena Cava, Percutaneous Approach (ICD-10-PCS; 2023-09-29)
DX: S64.92XA Injury of unspecified nerve at wrist and hand level of left arm, initial encounter (principal); I21.A1 Myocardial infarction type 2; N18.6 End stage renal disease; I12.0 Hypertensive chronic kidney disease with stage 5 chronic kidney disease or end stage renal disease; N17.9 Acute kidney failure, unspecified; S64.40XA Injury of digital nerve of unspecified finger, initial encounter; E11.42 Type 2 diabetes mellitus with diabetic polyneuropathy; E11.22 Type 2 diabetes mellitus with diabetic chronic kidney disease; D63.1 Anemia in chronic kidney disease; E78.5 Hyperlipidemia, unspecified; D69.6 Thrombocytopenia, unspecified; G47.33 Obstructive sleep apnea (adult) (pediatric); E87.6 Hypokalemia; G25.81 Restless legs syndrome; M10.9 Gout, unspecified; G20.A1 Parkinson's disease without dyskinesia, without mention of fluctuations; T45.515A Adverse effect of anticoagulants, initial encounter; R29.703 NIHSS score 3; R94.31 Abnormal electrocardiogram [ECG] [EKG]; Z99.2 Dependence on renal dialysis; Z79.4 Long term (current) use of insulin; Z79.82 Long term (current) use of aspirin; Z79.02 Long term (current) use of antithrombotics/antiplatelets; Z79.899 Other long term (current) drug therapy; W18.30XA Fall on same level, unspecified, initial encounter; Y92.009 Unspecified place in unspecified non-institutional (private) residence as the place of occurrence of the external cause
CPT/HCPCS: 36415; 70450; 70496; 70498; 70551; 71045; 72125; 80048; 80061; 80069; 80076; 81240; 81241; 82088; 82306; 82607; 82947; 83036; 83090; 83735; 84100; 84132; 84165; 84244; 84425; 84436; 84443; 84484; 85025; 85027; 85300; 85302; 85305; 85306; 85610; 85730; 86021; 86140; 86147; 86592; 86705; 86706; 87340; 90935; 92523; 93005; 93306; 93975; 97112; 97116; 97161; 97530; 99285; G0378; J0360; J1644; J2405; J7030; J7040; Q9967